=== PATIENT | male | born 1940 | race Caucasian/White ===

== ENCOUNTER 2020-02-21 13:30 | Inpatient (IN) ==
[2020-02-21 14:30] LABS: Basophils % 0.5 %; Eosinophils # 0.1 K/mcL (0.0-0.6); Eosinophils % 1.3 %; Hematocrit 46.3 % (37.5-50.1); Immature Granulocytes % 0.3 % (0-4); Lymphocytes % 11.9 %; Mean Corpuscular HGB Conc 32.4 g/dL (31.6-35.5); Mean Corpuscular Hemoglobin 29.5 pg (28.0-33.3); Mean Platelet Volume 11.5 fL (9.4-12.4); Monocytes # 0.7 K/mcL (0.0-1.3); Monocytes % 8.4 %; Neutrophils # 6.7 K/mcL (1.6-8.9); Platelet Count 199 K/mcL (140-400); Red Blood Count 5.09 M/mcL (4.19-5.50); Red Cell Distribution Width 15.8 % (11.5-14.5); Segmented Neutrophils % 77.6 %; White Blood Count 8.6 K/mcL (4.3-11.1)
[2020-02-21] MEDS ORDERED: cefTRIAXone 1,000 MG in Water for inj. (sterile) 10 ML IVP ONE (14:41)
[2020-02-21] MEDS ORDERED: Azithromycin 500 MG in 0.9 % Sodium Chloride 250 ML IVPB ONE (14:42)
[2020-02-21] MEDS ORDERED: Ipratropium/Albuterol Neb 3 ML IH ONE (14:43)
[2020-02-21] MEDS ORDERED: methylPREDNISolone 125 MG in 0.9 % Sodium Chloride 100 ML IVPB ONE (14:45)
[2020-02-21] MEDS ORDERED: methylPREDNISolone 125 MG/2 ML VIAL IVP ONE (14:50)
[2020-02-21 14:51] LABS: INR 1.1; Prothrombin Time 12.8 Seconds (9.4-12.1)
[2020-02-21 15:09] LABS: VBG HCO3 33 mEq/L (21-27); VBG Ionized Calcium 1.18 mmol/L (1.15-1.35); VBG PCO2 63 mmHg (41-51); VBG PH 7.33 pH Units (7.32-7.42); VBG PO2 117 mmHg (25-50)
[2020-02-21 15:35] LABS: Alanine Aminotransferase 13 Units/L (7-52); Alkaline Phosphatase 64 Units/L (34-104); Aspartate Amino Transferase 17 Units/L (13-39); BUN/Creatinine Ratio 19 (6-26); Bilirubin,Total 0.7 mg/dL (0.3-1.0); Blood Urea Nitrogen 16 mg/dL (8-23); C-Reactive Protein 51 mg/L (Less than 10); Calcium 8.7 mg/dL (8.6-10.3); Carbon Dioxide 30 mEq/L (23-29); Chloride 104 mEq/L (98-107); Glucose 107 mg/dL (70-105); Lactate Dehydrogenase 151 Units/L (140-271); Osmolality,Calculated 292 (280-300); Phosphorous 3.2 mg/dL (2.7-4.5); Potassium 3.6 mEq/L (3.5-5.1); Sodium 140 mEq/L (136-145); Troponin I < 0.03 ng/mL (< 0.04); eGFR For African Americans > 60 (> 60); eGFR For Non-African Americans > 60 (> 60)
[2020-02-21 15:53] LABS: Ferritin 105 ng/mL (20-250)
[2020-02-21 16:58] LABS: Bilirubin,Urine Negative (Negative); Blood,Urine Negative (Negative); Clarity,Urine Clear (Clear); Color,Urine Yellow (Yellow); Glucose,Urine (UA) Normal (Normal); Ketones,Urine Negative (Negative); Leukocyte Esterase,Urine Negative (Negative); Nitrite,Urine Negative (Negative); PH,Urine 6.5 pH Units (5.0-8.0); Protein,Urine Negative (Neg-Trace); Specific Gravity,Urine 1.029 (1.010-1.025); Urobilinogen,Urine Normal (Normal)
[2020-02-21] MEDS ORDERED: Naloxone 0.4 MG/ML INJ IVP PRN (17:39)
[2020-02-21] MEDS: Ipratropium 1 PUFF INHALER IH SCH ×2 (18:13→22:27)
[2020-02-21] MEDS: MethylPREDNISolone 40 MG/ML VIAL IVP SCH (22:58)
[2020-02-22] MEDS: Ipratropium 1 PUFF INHALER IH SCH ×4 (04:01→22:55)
[2020-02-22 05:57] LABS: BUN/Creatinine Ratio 24 (6-26); Blood Urea Nitrogen 21 mg/dL (8-23); Calcium 9.1 mg/dL (8.6-10.3); Carbon Dioxide 31 mEq/L (23-29); Chloride 105 mEq/L (98-107); Glucose 144 mg/dL (70-105); Osmolality,Calculated 298 (280-300); Sodium 141 mEq/L (136-145); eGFR For African Americans > 60 (> 60); eGFR For Non-African Americans > 60 (> 60)
[2020-02-22] MEDS ORDERED: *HR* Enoxaparin 30 MG/0.3 ML SYRINGE SQ SCH (06:00)
[2020-02-22] MEDS: cefTRIAXone 1,000 MG in Water for inj. (sterile) 10 ML IVP SCH (08:40)
[2020-02-22] MEDS: MethylPREDNISolone 40 MG/ML VIAL IVP SCH (08:40)
[2020-02-22] MEDS: Aspirin Enteric Coated 81 MG Tablet PO SCH (08:40)
[2020-02-22] MEDS ORDERED: Azithromycin 500 MG in D5% in Water 250 ML IVPB SCH (15:00)
[2020-02-23] MEDS: Ipratropium 1 PUFF INHALER IH SCH ×3 (04:03→16:32)
[2020-02-23 06:11] LABS: Basophils % 0.1 %; Hematocrit 42.6 % (37.5-50.1); Immature Granulocytes % 0.5 % (0-4); Lymphocytes % 8.1 %; Mean Corpuscular HGB Conc 31.2 g/dL (31.6-35.5); Mean Corpuscular Hemoglobin 28.2 pg (28.0-33.3); Mean Corpuscular Volume 90.4 fL (83.0-100.0); Mean Platelet Volume 11.2 fL (9.4-12.4); Monocytes # 0.9 K/mcL (0.0-1.3); Monocytes % 7.3 %; Platelet Count 200 K/mcL (140-400); Red Blood Count 4.71 M/mcL (4.19-5.50); Red Cell Distribution Width 15.7 % (11.5-14.5); White Blood Count 11.9 K/mcL (4.3-11.1)
[2020-02-23 06:12] LABS: Hemoglobin 13.3 g/dL (12.9-16.9)
[2020-02-23 06:15] LABS: VBG HCO3 28 mEq/L (21-27); VBG PCO2 35 mmHg (41-51); VBG PH 7.51 pH Units (7.32-7.42); VBG PO2 166 mmHg (25-50)
[2020-02-23 06:32] LABS: BUN/Creatinine Ratio 37 (6-26); Blood Urea Nitrogen 34 mg/dL (8-23); Calcium 8.7 mg/dL (8.6-10.3); Carbon Dioxide 29 mEq/L (23-29); Chloride 105 mEq/L (98-107); Glucose 103 mg/dL (70-105); Magnesium 2.2 mg/dL (1.6-2.6); Osmolality,Calculated 296 (280-300); Potassium 4.2 mEq/L (3.5-5.1); Sodium 139 mEq/L (136-145); eGFR For African Americans > 60 (> 60); eGFR For Non-African Americans > 60 (> 60)
[2020-02-23] MEDS: *HR* Enoxaparin 40 MG/0.4 ML SYRINGE SQ SCH (06:35)
[2020-02-23] MEDS: cefTRIAXone 1,000 MG in Water for inj. (sterile) 10 ML IVP SCH (08:04)
[2020-02-23] MEDS: Cyanocobalamin (B-12) 1,000 MCG TABLET PO SCH (08:05)
[2020-02-23] MEDS: Multivit/Ca/Min/Fe/FA 1 TAB TABLET PO SCH (08:05)
[2020-02-23] MEDS: Aspirin Enteric Coated 81 MG Tablet PO SCH (08:05)
[2020-02-23] MEDS: predniSONE 20 MG TABLET PO SCH (09:24)
[2020-02-23] MEDS ORDERED: Azithromycin 500 MG in 0.9 % Sodium Chloride 250 ML IVPB SCH (15:45)
[2020-02-23] MEDS: Ipratropium/Albuterol Neb 3 ML IH SCH (21:05)
[2020-02-23] MEDS: Tiotropium 18 MCG inhalation IH SCH (21:05)
[2020-02-24 00:50] LABS: Basophils % 0.2 %; Eosinophils % 0.4 %; Hemoglobin 13.5 g/dL (12.9-16.9); Immature Granulocytes % 0.3 % (0-4); Lymphocytes # 1.2 K/mcL (0.6-4.6); Lymphocytes % 11.7 %; Mean Corpuscular HGB Conc 30.7 g/dL (31.6-35.5); Mean Corpuscular Volume 91.1 fL (83.0-100.0); Mean Platelet Volume 10.6 fL (9.4-12.4); Monocytes # 0.8 K/mcL (0.0-1.3); Monocytes % 7.9 %; Neutrophils # 7.8 K/mcL (1.6-8.9); Platelet Count 181 K/mcL (140-400); Red Blood Count 4.83 M/mcL (4.19-5.50); Red Cell Distribution Width 15.5 % (11.5-14.5); Segmented Neutrophils % 79.5 %; White Blood Count 9.8 K/mcL (4.3-11.1)
[2020-02-24 00:53] LABS: VBG HCO3 32 mEq/L (21-27); VBG PCO2 57 mmHg (41-51); VBG PH 7.36 pH Units (7.32-7.42); VBG PO2 49 mmHg (25-50)
[2020-02-24 01:06] LABS: BUN/Creatinine Ratio 38 (6-26); Blood Urea Nitrogen 35 mg/dL (8-23); Calcium 8.4 mg/dL (8.6-10.3); Carbon Dioxide 30 mEq/L (23-29); Chloride 101 mEq/L (98-107); Glucose 97 mg/dL (70-105); Magnesium 1.9 mg/dL (1.6-2.6); Osmolality,Calculated 294 (280-300); Sodium 138 mEq/L (136-145); eGFR For African Americans > 60 (> 60); eGFR For Non-African Americans > 60 (> 60)
[2020-02-24] MEDS: Ipratropium/Albuterol Neb 3 ML IH SCH ×4 (03:14→22:23)
[2020-02-24] MEDS: *HR* Enoxaparin 40 MG/0.4 ML SYRINGE SQ SCH (05:57)
[2020-02-24] MEDS: Tiotropium 18 MCG inhalation IH SCH (08:05)
[2020-02-24] MEDS: Aspirin Enteric Coated 81 MG Tablet PO SCH (08:07)
[2020-02-24] MEDS: predniSONE 20 MG TABLET PO SCH (08:07)
[2020-02-24] MEDS: Multivit/Ca/Min/Fe/FA 1 TAB TABLET PO SCH (08:07)
[2020-02-24] MEDS: cefTRIAXone 1,000 MG in Water for inj. (sterile) 10 ML IVP SCH (08:07)
[2020-02-24] MEDS: Cyanocobalamin (B-12) 1,000 MCG TABLET PO SCH (08:07)
[2020-02-24] MEDS: Nicotine 21 MG PATCH.TD24 TD SCH (15:15)
[2020-02-24] MEDS: amLODIPine 5 MG TABLET PO SCH (20:29)
[2020-02-25 02:01] LABS: Basophils % 0.1 %; Hematocrit 40.1 % (37.5-50.1); Hemoglobin 12.7 g/dL (12.9-16.9); Immature Granulocytes % 0.4 % (0-4); Lymphocytes # 0.9 K/mcL (0.6-4.6); Lymphocytes % 12.2 %; Mean Corpuscular HGB Conc 31.7 g/dL (31.6-35.5); Mean Corpuscular Hemoglobin 28.3 pg (28.0-33.3); Mean Corpuscular Volume 89.5 fL (83.0-100.0); Mean Platelet Volume 11.6 fL (9.4-12.4); Monocytes # 0.7 K/mcL (0.0-1.3); Monocytes % 8.5 %; Platelet Count 168 K/mcL (140-400); Red Blood Count 4.48 M/mcL (4.19-5.50); Red Cell Distribution Width 15.3 % (11.5-14.5); Segmented Neutrophils % 78.8 %; White Blood Count 7.6 K/mcL (4.3-11.1)
[2020-02-25 02:23] LABS: BUN/Creatinine Ratio 33 (6-26); Blood Urea Nitrogen 27 mg/dL (8-23); Calcium 8.8 mg/dL (8.6-10.3); Carbon Dioxide 29 mEq/L (23-29); Chloride 101 mEq/L (98-107); Glucose 112 mg/dL (70-105); Magnesium 2.1 mg/dL (1.6-2.6); Osmolality,Calculated 288 (280-300); Sodium 136 mEq/L (136-145); eGFR For African Americans > 60 (> 60); eGFR For Non-African Americans > 60 (> 60)
[2020-02-25] MEDS: Ipratropium/Albuterol Neb 3 ML IH SCH ×4 (03:13→21:22)
[2020-02-25] MEDS: *HR* Enoxaparin 40 MG/0.4 ML SYRINGE SQ SCH (06:22)
[2020-02-25] MEDS: Cyanocobalamin (B-12) 1,000 MCG TABLET PO SCH (08:27)
[2020-02-25] MEDS: Aspirin Enteric Coated 81 MG Tablet PO SCH (08:27)
[2020-02-25] MEDS: cefTRIAXone 1,000 MG in Water for inj. (sterile) 10 ML IVP SCH (08:27)
[2020-02-25] MEDS: predniSONE 20 MG TABLET PO SCH (08:27)
[2020-02-25] MEDS: amLODIPine 5 MG TABLET PO SCH (08:27)
[2020-02-25] MEDS: Multivit/Ca/Min/Fe/FA 1 TAB TABLET PO SCH (08:27)
[2020-02-25] MEDS: Nicotine 21 MG PATCH.TD24 TD SCH (08:28)
[2020-02-25] MEDS: Tiotropium 18 MCG inhalation IH SCH (10:57)
[2020-02-25] MEDS ORDERED: *HR* HYDROcodone/Acet 5/325 mg TABLET PO ONE (20:29)
[2020-02-26] MEDS: Ipratropium/Albuterol Neb 3 ML IH SCH ×4 (03:20→21:23)
[2020-02-26 04:43] LABS: Basophils % 0.2 %; Eosinophils # 0.3 K/mcL (0.0-0.6); Eosinophils % 3.7 %; Hematocrit 42.3 % (37.5-50.1); Hemoglobin 13.6 g/dL (12.9-16.9); Immature Granulocytes % 0.2 % (0-4); Lymphocytes # 1.3 K/mcL (0.6-4.6); Lymphocytes % 15.6 %; Mean Corpuscular HGB Conc 32.2 g/dL (31.6-35.5); Mean Corpuscular Hemoglobin 28.6 pg (28.0-33.3); Mean Corpuscular Volume 88.9 fL (83.0-100.0); Mean Platelet Volume 11.1 fL (9.4-12.4); Monocytes # 0.7 K/mcL (0.0-1.3); Monocytes % 8.1 %; Neutrophils # 5.9 K/mcL (1.6-8.9); Platelet Count 190 K/mcL (140-400); Red Blood Count 4.76 M/mcL (4.19-5.50); Red Cell Distribution Width 15.5 % (11.5-14.5); Segmented Neutrophils % 72.2 %; White Blood Count 8.2 K/mcL (4.3-11.1)
[2020-02-26 05:00] LABS: BUN/Creatinine Ratio 23 (6-26); Blood Urea Nitrogen 21 mg/dL (8-23); Calcium 8.8 mg/dL (8.6-10.3); Carbon Dioxide 32 mEq/L (23-29); Chloride 101 mEq/L (98-107); Glucose 104 mg/dL (70-105); Magnesium 1.9 mg/dL (1.6-2.6); Osmolality,Calculated 287 (280-300); Potassium 4.3 mEq/L (3.5-5.1); Sodium 137 mEq/L (136-145); eGFR For African Americans > 60 (> 60); eGFR For Non-African Americans > 60 (> 60)
[2020-02-26] MEDS: *HR* Enoxaparin 40 MG/0.4 ML SYRINGE SQ SCH (06:03)
[2020-02-26] MEDS: Cyanocobalamin (B-12) 1,000 MCG TABLET PO SCH (08:09)
[2020-02-26] MEDS: amLODIPine 5 MG TABLET PO SCH (08:09)
[2020-02-26] MEDS: Multivit/Ca/Min/Fe/FA 1 TAB TABLET PO SCH (08:09)
[2020-02-26] MEDS: predniSONE 20 MG TABLET PO SCH (08:09)
[2020-02-26] MEDS: Aspirin Enteric Coated 81 MG Tablet PO SCH (08:09)
[2020-02-26] MEDS: cefTRIAXone 1,000 MG in Water for inj. (sterile) 10 ML IVP SCH (08:09)
[2020-02-26] MEDS: Nicotine 21 MG PATCH.TD24 TD SCH (08:10)
[2020-02-26] MEDS: Tiotropium 18 MCG inhalation IH SCH (10:22)
[2020-02-26] MEDS: Doxycycline 100 MG CAPSULE PO SCH (20:00)
[2020-02-27] MEDS: Ipratropium/Albuterol Neb 3 ML IH SCH ×3 (03:46→16:09)
[2020-02-27] MEDS: *HR* Enoxaparin 40 MG/0.4 ML SYRINGE SQ SCH (05:53)
[2020-02-27 05:57] LABS: Basophils % 0.3 %; Eosinophils # 0.1 K/mcL (0.0-0.6); Eosinophils % 2.1 %; Hematocrit 41.7 % (37.5-50.1); Hemoglobin 13.1 g/dL (12.9-16.9); Immature Granulocytes % 0.2 % (0-4); Lymphocytes # 1.1 K/mcL (0.6-4.6); Lymphocytes % 17.9 %; Mean Corpuscular HGB Conc 31.4 g/dL (31.6-35.5); Mean Corpuscular Hemoglobin 27.7 pg (28.0-33.3); Mean Corpuscular Volume 88.2 fL (83.0-100.0); Mean Platelet Volume 10.9 fL (9.4-12.4); Monocytes # 0.6 K/mcL (0.0-1.3); Monocytes % 10.1 %; Neutrophils # 4.3 K/mcL (1.6-8.9); Platelet Count 187 K/mcL (140-400); Red Blood Count 4.73 M/mcL (4.19-5.50); Red Cell Distribution Width 15.3 % (11.5-14.5); Segmented Neutrophils % 69.4 %; White Blood Count 6.1 K/mcL (4.3-11.1)
[2020-02-27 06:13] LABS: BUN/Creatinine Ratio 21 (6-26); Blood Urea Nitrogen 20 mg/dL (8-23); Calcium 9.2 mg/dL (8.6-10.3); Carbon Dioxide 31 mEq/L (23-29); Chloride 107 mEq/L (98-107); Glucose 101 mg/dL (70-105); Magnesium 2.1 mg/dL (1.6-2.6); Osmolality,Calculated 279 (280-300); Potassium 4.6 mEq/L (3.5-5.1); Sodium 133 mEq/L (136-145); eGFR For African Americans > 60 (> 60); eGFR For Non-African Americans > 60 (> 60)
[2020-02-27] MEDS: Doxycycline 100 MG CAPSULE PO SCH (09:49)
[2020-02-27] MEDS: Multivit/Ca/Min/Fe/FA 1 TAB TABLET PO SCH (09:49)
[2020-02-27] MEDS: Aspirin Enteric Coated 81 MG Tablet PO SCH (09:49)
[2020-02-27] MEDS: amLODIPine 5 MG TABLET PO SCH (09:49)
[2020-02-27] MEDS: Nicotine 21 MG PATCH.TD24 TD SCH (09:49)
[2020-02-27] MEDS: Cyanocobalamin (B-12) 1,000 MCG TABLET PO SCH (09:49)
[2020-02-27] MEDS: predniSONE 20 MG TABLET PO SCH (09:49)
[2020-02-27] MEDS: Tiotropium 18 MCG inhalation IH SCH (10:21)
[2020-02-27 16:55] VITALS: BP 137/56
== END 2020-02-27 18:52 | disposition home health service (06) | DRG 193 ==
LOC: EMEROOARM 13:30 → 2NENU 13:30 → SUATTDRO 17:46 → 2NENU 18:21 → 3NENU 02-22 20:32 → 2ANU 02-26 17:57
PROVIDERS: ADMIT Internal Medicine; ATTEND Pharmacist

== ENCOUNTER 2020-04-16 14:26 | Observation (INO) ==
[2020-04-16 16:50] LABS: Hemoglobin 11.3 g/dL (12.9-16.9); Immature Granulocytes % 0.2 % (0-4)
[2020-04-16 16:51] LABS: Basophils % 0.5 %; Eosinophils # 0.3 K/mcL (0.0-0.6); Eosinophils % 4.6 %; Hematocrit 36.3 % (37.5-50.1); Immature Platelets 7.1 % (1.1-6.1); Lymphocytes # 1.1 K/mcL (0.6-4.6); Lymphocytes % 18.7 %; Mean Corpuscular HGB Conc 31.1 g/dL (31.6-35.5); Mean Corpuscular Hemoglobin 28.3 pg (28.0-33.3); Mean Platelet Volume 11.5 fL (9.4-12.4); Monocytes # 0.6 K/mcL (0.0-1.3); Monocytes % 10.3 %; Platelet Count 131 K/mcL (140-400); Red Blood Count 3.99 M/mcL (4.19-5.50); Red Cell Distribution Width 16.4 % (11.5-14.5); Segmented Neutrophils % 65.7 %; White Blood Count 6.1 K/mcL (4.3-11.1)
[2020-04-16 17:14] LABS: BUN/Creatinine Ratio 26 (6-26); Blood Urea Nitrogen 22 mg/dL (8-23); Calcium 8.4 mg/dL (8.6-10.3); Carbon Dioxide 32 mEq/L (23-29); Chloride 105 mEq/L (98-107); Glucose 87 mg/dL (70-105); Osmolality,Calculated 293 (280-300); Sodium 140 mEq/L (136-145); eGFR For African Americans > 60 (> 60); eGFR For Non-African Americans > 60 (> 60)
[2020-04-16] MEDS ORDERED: Vancomycin 1,500 MG/265 ML IV.SOLN IVPB ONE (20:24)
[2020-04-16] MEDS ORDERED: Naloxone 0.4 MG/ML INJ IVP PRN (21:05)
[2020-04-16] MEDS ORDERED: Albuterol 2.5 MG/3 ML NEBULIZER IH PRN (21:07)
[2020-04-16] MEDS ORDERED: OXYGEN IH SCH (21:15)
[2020-04-17 02:36] LABS: BUN/Creatinine Ratio 23 (6-26); Blood Urea Nitrogen 19 mg/dL (8-23); Calcium 8.6 mg/dL (8.6-10.3); Carbon Dioxide 30 mEq/L (23-29); Chloride 105 mEq/L (98-107); Glucose 93 mg/dL (70-105); Osmolality,Calculated 290 (280-300); Potassium 4.2 mEq/L (3.5-5.1); Sodium 139 mEq/L (136-145); eGFR For African Americans > 60 (> 60); eGFR For Non-African Americans > 60 (> 60)
[2020-04-17 02:38] LABS: Basophils # 0.1 K/mcL (0.0-0.2); Basophils % 0.6 %; Eosinophils # 0.4 K/mcL (0.0-0.6); Eosinophils % 5.6 %; Hematocrit 40.1 % (37.5-50.1); Hemoglobin 12.2 g/dL (12.9-16.9); Immature Granulocytes % 0.3 % (0-4); Immature Platelets 8.7 % (1.1-6.1); Lymphocytes # 1.7 K/mcL (0.6-4.6); Lymphocytes % 22.3 %; Mean Corpuscular HGB Conc 30.4 g/dL (31.6-35.5); Mean Corpuscular Hemoglobin 27.9 pg (28.0-33.3); Mean Corpuscular Volume 91.8 fL (83.0-100.0); Monocytes # 0.8 K/mcL (0.0-1.3); Monocytes % 10.8 %; Neutrophils # 4.7 K/mcL (1.6-8.9); Platelet Count 129 K/mcL (140-400); Red Blood Count 4.37 M/mcL (4.19-5.50); Red Cell Distribution Width 16.6 % (11.5-14.5); Segmented Neutrophils % 60.4 %; White Blood Count 7.7 K/mcL (4.3-11.1)
[2020-04-17] MEDS ORDERED: *HR* Heparin 5,000 UNIT/ML VIAL SQ SCH (06:00)
[2020-04-17] MEDS ORDERED: Piperacillin/Tazobactam 3.375 GM in 0.9 % Sodium Chloride Mini Bag 100 ML IVPB SCH (08:00)
[2020-04-17] MEDS ORDERED: amLODIPine 5 MG TABLET PO SCH (09:00)
[2020-04-17] MEDS ORDERED: Aspirin Enteric Coated 81 MG Tablet PO SCH (09:00)
[2020-04-17] MEDS ORDERED: Multivit/Ca/Min/Fe/FA 1 TAB TABLET PO SCH (09:00)
[2020-04-17] MEDS ORDERED: Tiotropium 18 MCG inhalation IH SCH (10:00)
[2020-04-17 11:19] VITALS: BP 115/46
== END 2020-04-17 13:39 | disposition home or self-care (01) ==
LOC: EMEROOARM 14:26 → 3BNU 14:26 → SUATTDRO 20:40 → 3BNU 21:27 → UNDODISOB 04-17 12:36
PROVIDERS: ADMIT Family Medicine; ATTEND Internal Medicine

== ENCOUNTER 2020-07-05 12:57 | Inpatient (IN) ==
[2020-07-05] MEDS ORDERED: 0.9 % Sodium Chloride 1,000 ML IVC ONE (13:10)
[2020-07-05 14:03] LABS: Basophils % 0.5 %; Eosinophils # 0.3 K/mcL (0.0-0.6); Eosinophils % 4.4 %; Hematocrit 36.6 % (37.5-50.1); Hemoglobin 11.4 g/dL (12.9-16.9); Immature Granulocytes % 0.4 % (0-4); Lymphocytes # 1.2 K/mcL (0.6-4.6); Lymphocytes % 16.5 %; Mean Corpuscular HGB Conc 31.1 g/dL (31.6-35.5); Mean Corpuscular Hemoglobin 29.3 pg (28.0-33.3); Mean Corpuscular Volume 94.1 fL (83.0-100.0); Mean Platelet Volume 11.7 fL (9.4-12.4); Monocytes # 0.5 K/mcL (0.0-1.3); Monocytes % 7.2 %; Neutrophils # 5.3 K/mcL (1.6-8.9); Platelet Count 156 K/mcL (140-400); Red Blood Count 3.89 M/mcL (4.19-5.50); Red Cell Distribution Width 13.3 % (11.5-14.5); White Blood Count 7.5 K/mcL (4.3-11.1)
[2020-07-05 14:03] LABS: Bilirubin,Urine Negative (Negative); Blood,Urine Trace (Negative); Clarity,Urine Clear (Clear); Color,Urine Light-Yellow (Yellow); Glucose,Urine (UA) Normal (Normal); Ketones,Urine Negative (Negative); Leukocyte Esterase,Urine Negative (Negative); Nitrite,Urine Negative (Negative); PH,Urine 7.5 pH Units (5.0-8.0); Protein,Urine Negative (Neg-Trace); RBC,Urine 0-3 per hpf (0-3); Specific Gravity,Urine 1.013 (1.010-1.025); Urobilinogen,Urine Normal (Normal); WBC,Urine 0-3 per hpf (0-3)
[2020-07-05 14:18] LABS: Alanine Aminotransferase 5 Units/L (7-52); Albumin 3.4 g/dL (3.5-5.7); Albumin/Globulin Ratio 1.3 (1.1-2.2); Alkaline Phosphatase 83 Units/L (34-104); Aspartate Amino Transferase 11 Units/L (13-39); BUN/Creatinine Ratio 20 (6-26); Bilirubin,Total 0.4 mg/dL (0.3-1.0); Blood Urea Nitrogen 18 mg/dL (8-23); Calcium 8.8 mg/dL (8.6-10.3); Carbon Dioxide 32 mEq/L (23-29); Chloride 103 mEq/L (98-107); Globulin 2.7 g/dL (2.4-3.5); Glucose 93 mg/dL (70-105); Osmolality,Calculated 288 (280-300); Sodium 138 mEq/L (136-145); Total Protein 6.1 g/dL (6.4-8.9); Troponin I < 0.03 ng/mL (< 0.04); eGFR For African Americans > 60 (> 60); eGFR For Non-African Americans > 60 (> 60)
[2020-07-05] MEDS ORDERED: Naloxone 0.4 MG/ML INJ IVP PRN (16:23)
[2020-07-05] MEDS ORDERED: Acetaminophen 325 MG TABLET PO PRN (16:29)
[2020-07-05 17:08] LABS: C-Reactive Protein 11 mg/L (Less than 10); Magnesium 1.8 mg/dL (1.6-2.6); Phosphorous 3.1 mg/dL (2.7-4.5)
[2020-07-05] MEDS ORDERED: Albuterol 2.5 MG/3 ML NEBULIZER IH PRN (18:00)
[2020-07-05] MEDS ORDERED: Perflutren Lipid Microsphere 1.3 ML in 0.9 % Sodium Chloride 8.7 ML IVP PRN (19:02)
[2020-07-05 20:20] LABS: Prothrombin Time 11.6 Seconds (9.4-12.1)
[2020-07-06] MEDS: amLODIPine 5 MG TABLET PO SCH (08:04)
[2020-07-06] MEDS: Aspirin Enteric Coated 81 MG Tablet PO SCH (08:04)
[2020-07-06] MEDS: Tiotropium 18 MCG inhalation IH SCH (10:45)
[2020-07-06 10:47] LABS: Hematocrit 37.4 % (37.5-50.1); Hemoglobin 11.8 g/dL (12.9-16.9); Mean Corpuscular HGB Conc 31.6 g/dL (31.6-35.5); Mean Corpuscular Hemoglobin 29.6 pg (28.0-33.3); Mean Corpuscular Volume 93.7 fL (83.0-100.0); Mean Platelet Volume 11.7 fL (9.4-12.4); Platelet Count 142 K/mcL (140-400); Red Blood Count 3.99 M/mcL (4.19-5.50); Red Cell Distribution Width 13.1 % (11.5-14.5); White Blood Count 6.9 K/mcL (4.3-11.1)
[2020-07-06 11:06] LABS: BUN/Creatinine Ratio 19 (6-26); Blood Urea Nitrogen 16 mg/dL (8-23); Calcium 8.9 mg/dL (8.6-10.3); Carbon Dioxide 28 mEq/L (23-29); Chloride 104 mEq/L (98-107); Glucose 102 mg/dL (70-105); Osmolality,Calculated 287 (280-300); Potassium 3.8 mEq/L (3.5-5.1); Sodium 138 mEq/L (136-145); eGFR For African Americans > 60 (> 60); eGFR For Non-African Americans > 60 (> 60)
[2020-07-06] MEDS ORDERED: Leptospermum Honey GEL 1 APPL/5 ML MLS TP SCH (13:45)
[2020-07-06] MEDS: Leptospermum Honey Gel 44 ML TUBE TP SCH (17:36)
[2020-07-06] MEDS: *HR* Heparin 5,000 UNIT/ML VIAL SQ SCH (21:21)
[2020-07-07 02:38] LABS: Hematocrit 33.9 % (37.5-50.1); Hemoglobin 10.9 g/dL (12.9-16.9); Mean Corpuscular HGB Conc 32.2 g/dL (31.6-35.5); Mean Corpuscular Hemoglobin 30.3 pg (28.0-33.3); Mean Corpuscular Volume 94.2 fL (83.0-100.0); Mean Platelet Volume 11.6 fL (9.4-12.4); Platelet Count 148 K/mcL (140-400); Red Cell Distribution Width 13.1 % (11.5-14.5); White Blood Count 6.8 K/mcL (4.3-11.1)
[2020-07-07 02:57] LABS: BUN/Creatinine Ratio 20 (6-26); Blood Urea Nitrogen 18 mg/dL (8-23); Calcium 8.2 mg/dL (8.6-10.3); Carbon Dioxide 29 mEq/L (23-29); Chloride 104 mEq/L (98-107); Glucose 97 mg/dL (70-105); Osmolality,Calculated 288 (280-300); Potassium 3.9 mEq/L (3.5-5.1); Sodium 138 mEq/L (136-145); eGFR For African Americans > 60 (> 60); eGFR For Non-African Americans > 60 (> 60)
[2020-07-07] MEDS: *HR* Heparin 5,000 UNIT/ML VIAL SQ SCH (05:23)
[2020-07-07] MEDS: Aspirin Enteric Coated 81 MG Tablet PO SCH (10:28)
[2020-07-07] MEDS: amLODIPine 5 MG TABLET PO SCH (10:28)
[2020-07-07] MEDS: Leptospermum Honey Gel 44 ML TUBE TP SCH (10:29)
[2020-07-07] MEDS: Tiotropium 18 MCG inhalation IH SCH (10:32)
[2020-07-07 12:02] LABS: Cholesterol 91 mg/dL (< 200); HDL Cholesterol 30 mg/dL (40-59); LDL Cholesterol,Calculated 51 mg/dL (< 100); Triglycerides 51 mg/dL (< 150)
[2020-07-07 12:06] LABS: Estimated Average Glucose 105 mg/dl
[2020-07-08] MEDS: *HR* Enoxaparin 40 MG/0.4 ML SYRINGE SQ SCH (04:49)
[2020-07-08] MEDS: Tiotropium 18 MCG inhalation IH SCH (07:55)
[2020-07-08] MEDS: Aspirin Enteric Coated 81 MG Tablet PO SCH (09:00)
[2020-07-08] MEDS: Leptospermum Honey Gel 44 ML TUBE TP SCH (09:00)
[2020-07-08] MEDS: amLODIPine 5 MG TABLET PO SCH (09:00)
[2020-07-09 05:11] LABS: Hemoglobin 11.5 g/dL (12.9-16.9); Mean Corpuscular HGB Conc 31.9 g/dL (31.6-35.5); Mean Corpuscular Hemoglobin 29.3 pg (28.0-33.3); Mean Corpuscular Volume 91.6 fL (83.0-100.0); Mean Platelet Volume 11.2 fL (9.4-12.4); Platelet Count 155 K/mcL (140-400); Red Blood Count 3.93 M/mcL (4.19-5.50)
[2020-07-09] MEDS: *HR* Enoxaparin 40 MG/0.4 ML SYRINGE SQ SCH (05:20)
[2020-07-09 05:34] LABS: BUN/Creatinine Ratio 21 (6-26); Blood Urea Nitrogen 21 mg/dL (8-23); Calcium 8.4 mg/dL (8.6-10.3); Carbon Dioxide 30 mEq/L (23-29); Chloride 104 mEq/L (98-107); Glucose 102 mg/dL (70-105); Osmolality,Calculated 291 (280-300); Potassium 4.1 mEq/L (3.5-5.1); Sodium 139 mEq/L (136-145); eGFR For African Americans > 60 (> 60); eGFR For Non-African Americans > 60 (> 60)
[2020-07-09] MEDS: Tiotropium 18 MCG inhalation IH SCH (07:48)
[2020-07-09] MEDS: amLODIPine 5 MG TABLET PO SCH (10:12)
[2020-07-09] MEDS: Aspirin Enteric Coated 81 MG Tablet PO SCH (10:12)
[2020-07-09] MEDS: Leptospermum Honey Gel 44 ML TUBE TP SCH (10:24)
[2020-07-09 15:27] VITALS: BP 143/70
== END 2020-07-09 17:59 | DRG 65 ==
LOC: EMEROOARM 12:57 → 3BNU 12:57 → SUATTDRO 18:03
PROVIDERS: ADMIT Internal Medicine; ATTEND Internal Medicine

== ENCOUNTER 2020-08-17 13:12 | Inpatient (IN) ==
[2020-08-17 13:41] LABS: Bacteria,Urine Many per hpf (None-Few); Bilirubin,Urine Negative (Negative); Blood,Urine Moderate (Negative); Clarity,Urine Turbid (Clear); Color,Urine Yellow (Yellow); Glucose,Urine (UA) Normal (Normal); Hyaline Casts,Urine Few per lpf (None Seen); Ketones,Urine Negative (Negative); Leukocyte Esterase,Urine Large (Negative); Mucus,Urine Few per lpf (None-Few); Nitrite,Urine Positive (Negative); PH,Urine 6.5 pH Units (5.0-8.0); Protein,Urine Trace mg/dL (Neg-Trace); Specific Gravity,Urine 1.016 (1.010-1.025); Squamous Epithelial Cell,Urine Few per hpf (None-Few); WBC,Urine TNTC per hpf (0-3)
[2020-08-17 13:48] LABS: Amphetamine Screen,Urine Negative ng/mL (Cutoff=1000); Barbiturate Screen,Urine Negative ng/mL (Cutoff=200); Benzodiazepines Screen,Urine Negative ng/mL (Cutoff=200); Cannabinoid Screen,Urine Negative ng/mL (Cutoff = 50); Cocaine Screen,Urine Negative ng/mL (Cutoff= 300); Opiate Screen,Urine Negative ng/mL (Cutoff=300); Phencyclidine Screen,Urine Negative ng/mL (Cutoff=25)
[2020-08-17 14:20] LABS: Basophils % 0.6 %; Eosinophils # 0.2 K/mcL (0.0-0.6); Eosinophils % 4.6 %; Hematocrit 40.8 % (37.5-50.1); Hemoglobin 13.3 g/dL (12.9-16.9); Immature Granulocytes % 0.2 % (0-4); Lymphocytes # 1.2 K/mcL (0.6-4.6); Lymphocytes % 22.4 %; Mean Corpuscular HGB Conc 32.6 g/dL (31.6-35.5); Mean Corpuscular Hemoglobin 29.4 pg (28.0-33.3); Mean Corpuscular Volume 90.3 fL (83.0-100.0); Mean Platelet Volume 11.9 fL (9.4-12.4); Monocytes # 0.7 K/mcL (0.0-1.3); Monocytes % 13.8 %; Neutrophils # 3.1 K/mcL (1.6-8.9); Platelet Count 126 K/mcL (140-400); Red Blood Count 4.52 M/mcL (4.19-5.50); Red Cell Distribution Width 13.7 % (11.5-14.5); Segmented Neutrophils % 58.4 %; White Blood Count 5.2 K/mcL (4.3-11.1)
[2020-08-17 14:44] LABS: Alanine Aminotransferase 22 Units/L (7-52); Albumin 3.6 g/dL (3.5-5.7); Albumin/Globulin Ratio 1.2 (1.1-2.2); Alkaline Phosphatase 86 Units/L (34-104); Aspartate Amino Transferase 28 Units/L (13-39); BUN/Creatinine Ratio 25 (6-26); Bilirubin,Direct 0.1 mg/dL (0.0-0.2); Bilirubin,Indirect 0.4 mg/dL (0.0-1.0); Bilirubin,Total 0.5 mg/dL (0.3-1.0); Blood Urea Nitrogen 21 mg/dL (8-23); Carbon Dioxide 28 mEq/L (23-29); Chloride 101 mEq/L (98-107); Ethanol < 10 mg/dL (Less than 10); Glucose 108 mg/dL (70-105); Osmolality,Calculated 284 (280-300); Potassium 3.8 mEq/L (3.5-5.1); Sodium 135 mEq/L (136-145); Total Protein 6.6 g/dL (6.4-8.9); Troponin I < 0.03 ng/mL (< 0.04); eGFR For African Americans > 60 (> 60); eGFR For Non-African Americans > 60 (> 60)
[2020-08-17] MEDS ORDERED: cefTRIAXone 1,000 MG in Water for inj. (sterile) 10 ML IVP ONE (15:01)
[2020-08-17] MEDS ORDERED: Naloxone 0.4 MG/ML INJ IVP PRN (15:29)
[2020-08-17] MEDS ORDERED: cefTRIAXone 2,000 MG in Water for inj. (sterile) 20 ML IVP SCH (18:00)
[2020-08-17 18:21] LABS: Adenovirus Not Detected (Not Detect); Bordetella Pertussis Not Detected (Not Detect); Chlamydophila pneumoniae Not Detected (Not Detect); Coronavirus 229E Not Detected (Not Detect); Coronavirus HKU1 Not Detected (Not Detect); Coronavirus NL63 Not Detected (Not Detect); Coronavirus OC43 Not Detected (Not Detect); Human Metapneumovirus Not Detected (Not Detect); Human Rhinovirus/Enterovirus Not Detected (Not Detect); Influenza A Subtype 2009 H1 Not Detected (Not Detect); Influenza B Not Detected (Not Detect); Mycoplasma pneumoniae Not Detected (Not Detect); Parainfluenza Virus 1 Not Detected (Not Detect); Parainfluenza Virus 2 Not Detected (Not Detect); Parainfluenza Virus 3 Not Detected (Not Detect); Parainfluenza Virus 4 Not Detected (Not Detect); Respiratory Syncytial Virus Not Detected (Not Detect); SARS-CoV-2 Not Detected (Not Detect)
[2020-08-17 18:35] LABS: ABG Base Excess 4 mEq/L (-2 to 3); ABG HCO3 31 mEq/L (21-27); ABG Oxygen Saturation 99 % (95-98); ABG PCO2 55 mmHg (35-45); ABG PH 7.36 pH Units (7.32-7.45); ABG PO2 134 mmHg (85-104); ABG TCO2 32 mEq/L (20-26)
[2020-08-17] MEDS: 0.9 % Sodium Chloride 1,000 ML IVC SCH (20:47)
[2020-08-17] MEDS: *HR* Heparin 5,000 UNIT/ML VIAL SQ SCH (20:48)
[2020-08-18] MEDS: *HR* Heparin 5,000 UNIT/ML VIAL SQ SCH ×2 (05:19→17:32)
[2020-08-18 06:02] LABS: Basophils # 0.1 K/mcL (0.0-0.2); Basophils % 0.9 %; Eosinophils # 0.4 K/mcL (0.0-0.6); Eosinophils % 6.5 %; Hematocrit 39.6 % (37.5-50.1); Hemoglobin 12.5 g/dL (12.9-16.9); Immature Granulocytes % 0.4 % (0-4); Lymphocytes # 1.4 K/mcL (0.6-4.6); Lymphocytes % 25.1 %; Mean Corpuscular HGB Conc 31.6 g/dL (31.6-35.5); Mean Corpuscular Hemoglobin 28.9 pg (28.0-33.3); Mean Corpuscular Volume 91.7 fL (83.0-100.0); Monocytes # 0.7 K/mcL (0.0-1.3); Monocytes % 13.7 %; Neutrophils # 2.9 K/mcL (1.6-8.9); Platelet Count 122 K/mcL (140-400); Red Blood Count 4.32 M/mcL (4.19-5.50); Red Cell Distribution Width 13.7 % (11.5-14.5); Segmented Neutrophils % 53.4 %; White Blood Count 5.4 K/mcL (4.3-11.1)
[2020-08-18 06:25] LABS: BUN/Creatinine Ratio 22 (6-26); Blood Urea Nitrogen 20 mg/dL (8-23); Calcium 8.8 mg/dL (8.6-10.3); Carbon Dioxide 29 mEq/L (23-29); Chloride 103 mEq/L (98-107); Glucose 95 mg/dL (70-105); Magnesium 2.1 mg/dL (1.6-2.6); Osmolality,Calculated 286 (280-300); Phosphorous 3.7 mg/dL (2.7-4.5); Potassium 3.9 mEq/L (3.5-5.1); Sodium 137 mEq/L (136-145); eGFR For African Americans > 60 (> 60); eGFR For Non-African Americans > 60 (> 60)
[2020-08-18] MEDS: cefTRIAXone 2,000 MG in Water for inj. (sterile) 20 ML IVP SCH (08:32)
[2020-08-18] MEDS: Aspirin Enteric Coated 81 MG Tablet PO SCH (08:33)
[2020-08-18] MEDS: amLODIPine 5 MG TABLET PO SCH (08:33)
[2020-08-18] MEDS: Ipratropium/Albuterol Neb 3 ML IH SCH ×2 (15:38→21:51)
[2020-08-18] MEDS: 0.9 % Sodium Chloride 1,000 ML IVC SCH (16:05)
[2020-08-19] MEDS: Ipratropium/Albuterol Neb 3 ML IH SCH ×4 (03:50→20:50)
[2020-08-19] MEDS: *HR* Heparin 5,000 UNIT/ML VIAL SQ SCH ×2 (05:16→18:06)
[2020-08-19] MEDS ORDERED: Furosemide 20 MG/2 ML VIAL IVP ONE (08:08)
[2020-08-19] MEDS: amLODIPine 5 MG TABLET PO SCH (09:57)
[2020-08-19] MEDS: Aspirin Enteric Coated 81 MG Tablet PO SCH (09:57)
[2020-08-19] MEDS: cefTRIAXone 2,000 MG in Water for inj. (sterile) 20 ML IVP SCH (09:58)
[2020-08-20] MEDS: Ipratropium/Albuterol Neb 3 ML IH SCH ×4 (03:55→22:32)
[2020-08-20] MEDS: *HR* Heparin 5,000 UNIT/ML VIAL SQ SCH ×2 (05:39→17:11)
[2020-08-20 06:11] LABS: Hematocrit 35.6 % (37.5-50.1); Hemoglobin 11.2 g/dL (12.9-16.9); Mean Corpuscular HGB Conc 31.5 g/dL (31.6-35.5); Mean Corpuscular Hemoglobin 28.2 pg (28.0-33.3); Mean Corpuscular Volume 89.7 fL (83.0-100.0); Red Blood Count 3.97 M/mcL (4.19-5.50); Red Cell Distribution Width 13.6 % (11.5-14.5); White Blood Count 5.7 K/mcL (4.3-11.1)
[2020-08-20 06:21] LABS: BUN/Creatinine Ratio 22 (6-26); Blood Urea Nitrogen 21 mg/dL (8-23); Calcium 8.6 mg/dL (8.6-10.3); Carbon Dioxide 32 mEq/L (23-29); Chloride 103 mEq/L (98-107); Glucose 107 mg/dL (70-105); Osmolality,Calculated 291 (280-300); Potassium 3.6 mEq/L (3.5-5.1); Sodium 139 mEq/L (136-145); eGFR For African Americans > 60 (> 60); eGFR For Non-African Americans > 60 (> 60)
[2020-08-20] MEDS: cefTRIAXone 2,000 MG in Water for inj. (sterile) 20 ML IVP SCH (11:04)
[2020-08-20] MEDS: Aspirin Enteric Coated 81 MG Tablet PO SCH (11:04)
[2020-08-20] MEDS: amLODIPine 5 MG TABLET PO SCH (11:08)
[2020-08-20] MEDS: Acetaminophen 325 MG TABLET PO PRN (11:29)
[2020-08-21] MEDS: Ipratropium/Albuterol Neb 3 ML IH SCH ×4 (03:49→22:26)
[2020-08-21 04:39] LABS: Basophils % 0.4 %; Eosinophils # 0.6 K/mcL (0.0-0.6); Eosinophils % 8.2 %; Hematocrit 35.6 % (37.5-50.1); Hemoglobin 11.4 g/dL (12.9-16.9); Immature Granulocytes % 0.3 % (0-4); Lymphocytes # 1.7 K/mcL (0.6-4.6); Mean Corpuscular Hemoglobin 28.7 pg (28.0-33.3); Mean Corpuscular Volume 89.7 fL (83.0-100.0); Mean Platelet Volume 11.2 fL (9.4-12.4); Monocytes # 0.6 K/mcL (0.0-1.3); Monocytes % 9.1 %; Neutrophils # 3.9 K/mcL (1.6-8.9); Platelet Count 157 K/mcL (140-400); Red Blood Count 3.97 M/mcL (4.19-5.50); Red Cell Distribution Width 13.7 % (11.5-14.5); White Blood Count 6.9 K/mcL (4.3-11.1)
[2020-08-21 04:55] LABS: BUN/Creatinine Ratio 20 (6-26); Blood Urea Nitrogen 21 mg/dL (8-23); Calcium 8.9 mg/dL (8.6-10.3); Carbon Dioxide 31 mEq/L (23-29); Chloride 102 mEq/L (98-107); Glucose 112 mg/dL (70-105); Osmolality,Calculated 290 (280-300); Potassium 3.7 mEq/L (3.5-5.1); Sodium 138 mEq/L (136-145); eGFR For African Americans > 60 (> 60); eGFR For Non-African Americans > 60 (> 60)
[2020-08-21] MEDS: *HR* Heparin 5,000 UNIT/ML VIAL SQ SCH ×2 (05:19→17:03)
[2020-08-21] MEDS: Aspirin Enteric Coated 81 MG Tablet PO SCH (09:32)
[2020-08-21] MEDS: amLODIPine 5 MG TABLET PO SCH (09:32)
[2020-08-21] MEDS: cefTRIAXone 2,000 MG in Water for inj. (sterile) 20 ML IVP SCH (09:33)
[2020-08-21] MEDS: Acetaminophen 325 MG TABLET PO PRN (09:34)
[2020-08-21] MEDS: Azithromycin 250 MG TABLET PO SCH (17:03)
[2020-08-22] MEDS: Ipratropium/Albuterol Neb 3 ML IH SCH ×3 (03:58→16:07)
[2020-08-22] MEDS: *HR* Heparin 5,000 UNIT/ML VIAL SQ SCH ×2 (05:57→16:36)
[2020-08-22 06:33] LABS: Basophils % 0.4 %; Eosinophils # 0.3 K/mcL (0.0-0.6); Eosinophils % 4.1 %; Hematocrit 37.5 % (37.5-50.1); Hemoglobin 12.2 g/dL (12.9-16.9); Immature Granulocytes % 0.4 % (0-4); Lymphocytes # 1.3 K/mcL (0.6-4.6); Lymphocytes % 16.5 %; Mean Corpuscular HGB Conc 32.5 g/dL (31.6-35.5); Mean Corpuscular Hemoglobin 29.3 pg (28.0-33.3); Mean Corpuscular Volume 90.1 fL (83.0-100.0); Mean Platelet Volume 11.5 fL (9.4-12.4); Monocytes # 0.6 K/mcL (0.0-1.3); Monocytes % 7.9 %; Neutrophils # 5.7 K/mcL (1.6-8.9); Platelet Count 190 K/mcL (140-400); Red Blood Count 4.16 M/mcL (4.19-5.50); Red Cell Distribution Width 13.9 % (11.5-14.5); Segmented Neutrophils % 70.7 %; White Blood Count 8.1 K/mcL (4.3-11.1)
[2020-08-22 06:52] LABS: BUN/Creatinine Ratio 24 (6-26); Blood Urea Nitrogen 22 mg/dL (8-23); Calcium 9.4 mg/dL (8.6-10.3); Carbon Dioxide 31 mEq/L (23-29); Chloride 101 mEq/L (98-107); Glucose 118 mg/dL (70-105); Osmolality,Calculated 288 (280-300); Potassium 3.8 mEq/L (3.5-5.1); Sodium 137 mEq/L (136-145); eGFR For African Americans > 60 (> 60); eGFR For Non-African Americans > 60 (> 60)
[2020-08-22] MEDS: amLODIPine 5 MG TABLET PO SCH (07:57)
[2020-08-22] MEDS: Aspirin Enteric Coated 81 MG Tablet PO SCH (07:57)
[2020-08-22] MEDS: cefTRIAXone 2,000 MG in Water for inj. (sterile) 20 ML IVP SCH (07:57)
[2020-08-22 14:49] VITALS: BP 147/67
[2020-08-22] MEDS: Azithromycin 250 MG TABLET PO SCH (16:36)
== END 2020-08-22 17:14 | disposition home health service (06) | DRG 689 ==
LOC: EMEROOARM 13:12 → 3ANU 13:12
PROVIDERS: ADMIT Internal Medicine; ATTEND Internal Medicine

== ENCOUNTER 2020-08-26 01:27 | Inpatient (IN) ==
[2020-08-26] MEDS ORDERED: Ondansetron 4 MG/2 ML VIAL IVP ONE (01:44)
[2020-08-26] MEDS ORDERED: *HR* FentaNYL (PF) 100 MCG/2 ML VIAL IVP ONE (01:44)
[2020-08-26] MEDS ORDERED: 0.9 % Sodium Chloride 1,000 ML IVC ONE (01:44)
[2020-08-26 03:49] LABS: Red Cell Distribution Width 13.5 % (11.5-14.5)
[2020-08-26 03:51] LABS: Basophils % 0.3 %; Eosinophils # 0.2 K/mcL (0.0-0.6); Eosinophils % 2.3 %; Hematocrit 35.2 % (37.5-50.1); Immature Granulocytes % 0.4 % (0-4); Immature Platelets 7.1 % (1.1-6.1); Lymphocytes % 6.2 %; Mean Corpuscular HGB Conc 31.3 g/dL (31.6-35.5); Mean Corpuscular Hemoglobin 28.2 pg (28.0-33.3); Mean Corpuscular Volume 90.3 fL (83.0-100.0); Mean Platelet Volume 11.7 fL (9.4-12.4); Monocytes # 0.5 K/mcL (0.0-1.3); Monocytes % 4.9 %; Platelet Count 188 K/mcL (140-400); Segmented Neutrophils % 85.9 %; White Blood Count 10.4 K/mcL (4.3-11.1)
[2020-08-26 03:53] LABS: Alanine Aminotransferase 34 Units/L (7-52); Albumin 3.1 g/dL (3.5-5.7); Albumin/Globulin Ratio 1.1 (1.1-2.2); Alkaline Phosphatase 93 Units/L (34-104); Aspartate Amino Transferase 54 Units/L (13-39); BUN/Creatinine Ratio 27 (6-26); Bilirubin,Direct 0.1 mg/dL (0.0-0.2); Bilirubin,Indirect 0.3 mg/dL (0.0-1.0); Bilirubin,Total 0.4 mg/dL (0.3-1.0); Blood Urea Nitrogen 25 mg/dL (8-23); Carbon Dioxide 30 mEq/L (23-29); Chloride 102 mEq/L (98-107); Globulin 2.8 g/dL (2.4-3.5); Glucose 135 mg/dL (70-105); Lipase 188 Units/L (11-82); Osmolality,Calculated 292 (280-300); Potassium 4.2 mEq/L (3.5-5.1); Sodium 138 mEq/L (136-145); Total Protein 5.9 g/dL (6.4-8.9); Troponin I < 0.03 ng/mL (< 0.04); eGFR For African Americans > 60 (> 60); eGFR For Non-African Americans > 60 (> 60)
[2020-08-26 04:09] LABS: Lymphocytes # 0.6 K/mcL (0.6-4.6); Neutrophils # 8.9 K/mcL (1.6-8.9)
[2020-08-26] MEDS ORDERED: 0.9 % Sodium Chloride 1,000 ML IVC SCH (04:15)
[2020-08-26] MEDS ORDERED: Naloxone 0.4 MG/ML INJ IVP PRN (04:24)
[2020-08-26] MEDS ORDERED: Ondansetron 4 MG/2 ML VIAL IVP PRN (04:24)
[2020-08-26 05:18] LABS: Bacteria,Urine Few per hpf (None-Few); Bilirubin,Urine Negative (Negative); Blood,Urine Negative (Negative); Clarity,Urine Clear (Clear); Color,Urine Light-Yellow (Yellow); Glucose,Urine (UA) Normal (Normal); Hyaline Casts,Urine Few per lpf (None Seen); Ketones,Urine Negative (Negative); Leukocyte Esterase,Urine Trace (Negative); Mucus,Urine Few per lpf (None-Few); Nitrite,Urine Negative (Negative); PH,Urine 6.5 pH Units (5.0-8.0); Protein,Urine Trace mg/dL (Neg-Trace); Specific Gravity,Urine 1.019 (1.010-1.025); Squamous Epithelial Cell,Urine Few per hpf (None-Few); Urobilinogen,Urine Normal (Normal)
[2020-08-26] MEDS: *HR* Heparin 5,000 UNIT/ML VIAL SQ SCH ×2 (06:28→18:46)
[2020-08-26] MEDS: 0.9 % Sodium Chloride 1,000 ML IVC SCH ×2 (06:28→18:43)
[2020-08-26] MEDS: Ipratropium/Albuterol Neb 3 ML IH PRN (06:35)
[2020-08-26 06:44] LABS: Chol/HDL Ratio 3.6 (0-4.9); Cholesterol 103 mg/dL (< 200); Ethanol < 10 mg/dL (Less than 10); HDL Cholesterol 29 mg/dL (40-59); LDL Cholesterol,Calculated 64 mg/dL (< 100); Triglycerides 50 mg/dL (< 150)
[2020-08-26] MEDS ORDERED: cefTRIAXone 1,000 MG in Water for inj. (sterile) 10 ML IVP SCH (09:00)
[2020-08-26] MEDS: amLODIPine 5 MG TABLET PO SCH (12:11)
[2020-08-26] MEDS: Aspirin Enteric Coated 81 MG Tablet PO SCH (12:11)
[2020-08-27] MEDS: *HR* Heparin 5,000 UNIT/ML VIAL SQ SCH ×2 (05:14→17:59)
[2020-08-27 06:03] LABS: Basophils # 0.1 K/mcL (0.0-0.2); Basophils % 0.9 %; Eosinophils # 0.5 K/mcL (0.0-0.6); Eosinophils % 9.6 %; Hematocrit 35.9 % (37.5-50.1); Immature Granulocytes % 0.4 % (0-4); Lymphocytes # 1.4 K/mcL (0.6-4.6); Lymphocytes % 24.3 %; Mean Corpuscular HGB Conc 30.6 g/dL (31.6-35.5); Mean Corpuscular Hemoglobin 28.2 pg (28.0-33.3); Mean Corpuscular Volume 92.1 fL (83.0-100.0); Mean Platelet Volume 11.3 fL (9.4-12.4); Monocytes # 0.5 K/mcL (0.0-1.3); Monocytes % 8.9 %; Neutrophils # 3.2 K/mcL (1.6-8.9); Platelet Count 184 K/mcL (140-400); Red Cell Distribution Width 13.5 % (11.5-14.5); Segmented Neutrophils % 55.9 %; White Blood Count 5.6 K/mcL (4.3-11.1)
[2020-08-27 06:18] LABS: Alanine Aminotransferase 26 Units/L (7-52); Albumin 3.1 g/dL (3.5-5.7); Albumin/Globulin Ratio 1.2 (1.1-2.2); Alkaline Phosphatase 83 Units/L (34-104); Aspartate Amino Transferase 24 Units/L (13-39); BUN/Creatinine Ratio 19 (6-26); Bilirubin,Total 0.3 mg/dL (0.3-1.0); Blood Urea Nitrogen 18 mg/dL (8-23); Calcium 8.6 mg/dL (8.6-10.3); Carbon Dioxide 30 mEq/L (23-29); Chloride 106 mEq/L (98-107); Globulin 2.6 g/dL (2.4-3.5); Glucose 90 mg/dL (70-105); Magnesium 1.8 mg/dL (1.6-2.6); Osmolality,Calculated 289 (280-300); Potassium 4.2 mEq/L (3.5-5.1); Sodium 139 mEq/L (136-145); Total Protein 5.7 g/dL (6.4-8.9); eGFR For African Americans > 60 (> 60); eGFR For Non-African Americans > 60 (> 60)
[2020-08-27] MEDS: amLODIPine 5 MG TABLET PO SCH (08:29)
[2020-08-27] MEDS: Aspirin Enteric Coated 81 MG Tablet PO SCH (11:59)
[2020-08-28] MEDS: *HR* Heparin 5,000 UNIT/ML VIAL SQ SCH ×2 (06:55→16:39)
[2020-08-28] MEDS: amLODIPine 5 MG TABLET PO SCH (09:04)
[2020-08-28 09:26] LABS: Basophils % 0.6 %; Eosinophils # 0.4 K/mcL (0.0-0.6); Eosinophils % 6.1 %; Hematocrit 35.8 % (37.5-50.1); Hemoglobin 11.5 g/dL (12.9-16.9); Immature Granulocytes % 0.2 % (0-4); Lymphocytes # 1.4 K/mcL (0.6-4.6); Mean Corpuscular HGB Conc 32.1 g/dL (31.6-35.5); Mean Corpuscular Volume 90.4 fL (83.0-100.0); Mean Platelet Volume 11.1 fL (9.4-12.4); Monocytes # 0.5 K/mcL (0.0-1.3); Monocytes % 7.8 %; Neutrophils # 4.2 K/mcL (1.6-8.9); Platelet Count 204 K/mcL (140-400); Red Blood Count 3.96 M/mcL (4.19-5.50); Red Cell Distribution Width 13.4 % (11.5-14.5); Segmented Neutrophils % 64.3 %; White Blood Count 6.6 K/mcL (4.3-11.1)
[2020-08-28 09:46] LABS: BUN/Creatinine Ratio 16 (6-26); Blood Urea Nitrogen 14 mg/dL (8-23); Carbon Dioxide 30 mEq/L (23-29); Chloride 103 mEq/L (98-107); Glucose 116 mg/dL (70-105); Osmolality,Calculated 287 (280-300); Potassium 4.1 mEq/L (3.5-5.1); Sodium 138 mEq/L (136-145); eGFR For African Americans > 60 (> 60); eGFR For Non-African Americans > 60 (> 60)
[2020-08-28] MEDS: Aspirin Enteric Coated 81 MG Tablet PO SCH (11:06)
[2020-08-28] MEDS: Ipratropium/Albuterol Neb 3 ML IH PRN (21:50)
[2020-08-29] MEDS: *HR* Heparin 5,000 UNIT/ML VIAL SQ SCH ×2 (05:51→19:37)
[2020-08-29 06:43] LABS: Basophils # 0.1 K/mcL (0.0-0.2); Basophils % 0.7 %; Eosinophils # 0.4 K/mcL (0.0-0.6); Eosinophils % 5.9 %; Hematocrit 37.5 % (37.5-50.1); Hemoglobin 11.8 g/dL (12.9-16.9); Immature Granulocytes % 0.4 % (0-4); Lymphocytes # 1.6 K/mcL (0.6-4.6); Lymphocytes % 21.4 %; Mean Corpuscular HGB Conc 31.5 g/dL (31.6-35.5); Mean Corpuscular Hemoglobin 28.4 pg (28.0-33.3); Mean Corpuscular Volume 90.1 fL (83.0-100.0); Monocytes # 0.7 K/mcL (0.0-1.3); Neutrophils # 4.5 K/mcL (1.6-8.9); Platelet Count 206 K/mcL (140-400); Red Blood Count 4.16 M/mcL (4.19-5.50); Red Cell Distribution Width 13.6 % (11.5-14.5); Segmented Neutrophils % 62.6 %; White Blood Count 7.2 K/mcL (4.3-11.1)
[2020-08-29 06:55] LABS: BUN/Creatinine Ratio 15 (6-26); Blood Urea Nitrogen 14 mg/dL (8-23); Calcium 9.1 mg/dL (8.6-10.3); Carbon Dioxide 29 mEq/L (23-29); Chloride 104 mEq/L (98-107); Glucose 109 mg/dL (70-105); Osmolality,Calculated 289 (280-300); Potassium 4.1 mEq/L (3.5-5.1); Sodium 139 mEq/L (136-145); eGFR For African Americans > 60 (> 60); eGFR For Non-African Americans > 60 (> 60)
[2020-08-29] MEDS: amLODIPine 5 MG TABLET PO SCH (08:41)
[2020-08-29] MEDS: Aspirin Enteric Coated 81 MG Tablet PO SCH (11:35)
[2020-08-30] MEDS: *HR* Heparin 5,000 UNIT/ML VIAL SQ SCH ×2 (06:47→18:00)
[2020-08-30 07:02] LABS: Hematocrit 38.6 % (37.5-50.1); Mean Corpuscular HGB Conc 31.1 g/dL (31.6-35.5); Mean Corpuscular Hemoglobin 27.7 pg (28.0-33.3); Mean Corpuscular Volume 89.1 fL (83.0-100.0); Mean Platelet Volume 10.9 fL (9.4-12.4); Platelet Count 214 K/mcL (140-400); Red Blood Count 4.33 M/mcL (4.19-5.50); Red Cell Distribution Width 13.9 % (11.5-14.5)
[2020-08-30 07:12] LABS: BUN/Creatinine Ratio 19 (6-26); Blood Urea Nitrogen 19 mg/dL (8-23); Calcium 9.3 mg/dL (8.6-10.3); Carbon Dioxide 29 mEq/L (23-29); Chloride 103 mEq/L (98-107); Glucose 108 mg/dL (70-105); Osmolality,Calculated 289 (280-300); Potassium 4.2 mEq/L (3.5-5.1); Sodium 138 mEq/L (136-145); eGFR For African Americans > 60 (> 60); eGFR For Non-African Americans > 60 (> 60)
[2020-08-30] MEDS: Aspirin Enteric Coated 81 MG Tablet PO SCH (10:03)
[2020-08-30] MEDS: amLODIPine 5 MG TABLET PO SCH (10:04)
[2020-08-31] MEDS: *HR* Heparin 5,000 UNIT/ML VIAL SQ SCH ×2 (05:35→18:41)
[2020-08-31] MEDS: amLODIPine 5 MG TABLET PO SCH (09:45)
[2020-08-31] MEDS: Aspirin Enteric Coated 81 MG Tablet PO SCH (12:34)
[2020-08-31 18:13] LABS: Adenovirus Not Detected (Not Detect); Coronavirus 229E Not Detected (Not Detect); Coronavirus HKU1 Not Detected (Not Detect); Coronavirus NL63 Not Detected (Not Detect)
[2020-08-31 18:14] LABS: Bordetella Pertussis Not Detected (Not Detect); Chlamydophila pneumoniae Not Detected (Not Detect); Coronavirus OC43 Not Detected (Not Detect); Human Metapneumovirus Not Detected (Not Detect); Human Rhinovirus/Enterovirus Not Detected (Not Detect); Influenza A Subtype 2009 H1 Not Detected (Not Detect); Influenza B Not Detected (Not Detect); Mycoplasma pneumoniae Not Detected (Not Detect); Parainfluenza Virus 1 Not Detected (Not Detect); Parainfluenza Virus 2 Not Detected (Not Detect); Parainfluenza Virus 3 Not Detected (Not Detect); Parainfluenza Virus 4 Not Detected (Not Detect); Respiratory Syncytial Virus Not Detected (Not Detect); SARS-CoV-2 Not Detected (Not Detect)
[2020-08-31 19:09] VITALS: BP 144/74
== END 2020-08-31 19:43 | disposition other institution (70) | DRG 727 ==
LOC: EMEROOARM 01:27 → 3ANU 01:27
PROVIDERS: ADMIT Student in an Organized Health Care Education/Training Program; ATTEND Student in an Organized Health Care Education/Training Program

== ENCOUNTER 2020-11-13 15:56 | Inpatient (IN) ==
[2020-11-13] MEDS ORDERED: Isovue-370 500 ML BOTTLE IVP ONE (16:16)
[2020-11-13 16:25] LABS: Basophils % 0.5 %; Eosinophils # 0.3 K/mcL (0.0-0.6); Eosinophils % 4.1 %; Hematocrit 38.8 % (37.5-50.1); Hemoglobin 12.3 g/dL (12.9-16.9); Immature Granulocytes % 0.3 % (0-4); Lymphocytes # 1.7 K/mcL (0.6-4.6); Lymphocytes % 23.3 %; Mean Corpuscular HGB Conc 31.7 g/dL (31.6-35.5); Mean Corpuscular Hemoglobin 29.5 pg (28.0-33.3); Mean Platelet Volume 10.7 fL (9.4-12.4); Monocytes # 0.6 K/mcL (0.0-1.3); Monocytes % 7.7 %; Neutrophils # 4.7 K/mcL (1.6-8.9); Platelet Count 163 K/mcL (140-400); Red Blood Count 4.17 M/mcL (4.19-5.50); Red Cell Distribution Width 16.2 % (11.5-14.5); Segmented Neutrophils % 64.1 %; White Blood Count 7.3 K/mcL (4.3-11.1)
[2020-11-13 16:37] LABS: INR 1.1; Prothrombin Time 12.2 Seconds (9.4-12.1)
[2020-11-13 16:40] LABS: Activated Partial Thrombo Time 31.6 Seconds (26.0-36.0)
[2020-11-13 16:56] LABS: Alanine Aminotransferase 10 Units/L (7-52); Albumin 3.8 g/dL (3.5-5.7); Albumin/Globulin Ratio 1.5 (1.1-2.2); Alkaline Phosphatase 103 Units/L (34-104); Aspartate Amino Transferase 14 Units/L (13-39); BUN/Creatinine Ratio 13 (6-26); Bilirubin,Direct 0.1 mg/dL (0.0-0.2); Bilirubin,Indirect 0.4 mg/dL (0.0-1.0); Bilirubin,Total 0.5 mg/dL (0.3-1.0); Blood Urea Nitrogen 13 mg/dL (8-23); Calcium 9.2 mg/dL (8.6-10.3); Carbon Dioxide 30 mEq/L (23-29); Chloride 108 mEq/L (98-107); Globulin 2.6 g/dL (2.4-3.5); Glucose 100 mg/dL (70-105); Lipase 40 Units/L (11-82); Magnesium 2.1 mg/dL (1.6-2.6); Osmolality,Calculated 296 (280-300); Phosphorous 3.7 mg/dL (2.7-4.5); Potassium 3.8 mEq/L (3.5-5.1); Sodium 143 mEq/L (136-145); Total Protein 6.4 g/dL (6.4-8.9); Troponin I < 0.03 ng/mL (< 0.04); eGFR For African Americans > 60 (> 60); eGFR For Non-African Americans > 60 (> 60)
[2020-11-13 17:44] LABS: Adenovirus Not Detected (Not Detect); Bordetella Pertussis Not Detected (Not Detect); Chlamydophila pneumoniae Not Detected (Not Detect); Coronavirus 229E Not Detected (Not Detect); Coronavirus HKU1 Not Detected (Not Detect); Coronavirus NL63 Not Detected (Not Detect); Coronavirus OC43 Not Detected (Not Detect); Human Metapneumovirus Not Detected (Not Detect); Human Rhinovirus/Enterovirus Not Detected (Not Detect); Influenza A Subtype 2009 H1 Not Detected (Not Detect); Influenza B Not Detected (Not Detect); Mycoplasma pneumoniae Not Detected (Not Detect); Parainfluenza Virus 1 Not Detected (Not Detect); Parainfluenza Virus 2 Not Detected (Not Detect); Parainfluenza Virus 3 Not Detected (Not Detect); Parainfluenza Virus 4 Not Detected (Not Detect); Respiratory Syncytial Virus Not Detected (Not Detect); SARS-CoV-2 Not Detected (Not Detect)
[2020-11-13 18:04] LABS: Bacteria,Urine Few per hpf (None-Few); Bilirubin,Urine Negative (Negative); Blood,Urine Small (Negative); Clarity,Urine Clear (Clear); Color,Urine Light-Yellow (Yellow); Glucose,Urine (UA) Normal (Normal); Ketones,Urine Negative (Negative); Leukocyte Esterase,Urine Negative (Negative); Mucus,Urine Few per lpf (None-Few); Nitrite,Urine Negative (Negative); PH,Urine 5.5 pH Units (5.0-8.0); Protein,Urine Negative (Neg-Trace); Specific Gravity,Urine 1.012 (1.010-1.025); Squamous Epithelial Cell,Urine Few per hpf (None-Few); Urobilinogen,Urine Normal (Normal); WBC,Urine 0-3 per hpf (0-3)
[2020-11-13] MEDS ORDERED: methylPREDNISolone 125 MG/2 ML VIAL IVP ONE (19:53)
[2020-11-13] MEDS ORDERED: Azithromycin 500 MG in 0.9 % Sodium Chloride 250 ML IVPB ONE (19:53)
[2020-11-13] MEDS ORDERED: Ipratropium/Albuterol Neb 3 ML IH ONE (19:53)
[2020-11-13] MEDS ORDERED: Acetaminophen 325 MG TABLET PO PRN (20:28)
[2020-11-13] MEDS ORDERED: Ondansetron 4 MG/2 ML VIAL IVP PRN (20:28)
[2020-11-13] MEDS ORDERED: Naloxone 0.4 MG/ML INJ IVP PRN (20:28)
[2020-11-13] MEDS ORDERED: Ipratropium/Albuterol Neb 3 ML IH PRN (20:33)
[2020-11-13] MEDS ORDERED: Furosemide 20 MG/2 ML VIAL IVP ONE (20:52)
[2020-11-13] MEDS ORDERED: Perflutren Lipid Microsphere 1.3 ML in 0.9 % Sodium Chloride 8.7 ML IVP PRN (22:23)
[2020-11-13 23:00] LABS: ABG Base Excess 3 mEq/L (-2 to 3); ABG HCO3 30 mEq/L (21-27); ABG Oxygen Saturation 89 % (95-98); ABG PCO2 56 mmHg (35-45); ABG PH 7.33 pH Units (7.32-7.45); ABG PO2 63 mmHg (85-104); ABG TCO2 31 mEq/L (20-26)
[2020-11-13] MEDS: Ipratropium/Albuterol Neb 3 ML IH SCH (23:00)
[2020-11-14] MEDS: Ipratropium/Albuterol Neb 3 ML IH SCH ×6 (04:23→23:54)
[2020-11-14 05:22] LABS: Basophils % 0.6 %; Eosinophils % 0.2 %; Hematocrit 40.1 % (37.5-50.1); Hemoglobin 12.6 g/dL (12.9-16.9); Immature Granulocytes % 0.2 % (0-4); Lymphocytes # 0.7 K/mcL (0.6-4.6); Lymphocytes % 14.4 %; Mean Corpuscular HGB Conc 31.4 g/dL (31.6-35.5); Mean Corpuscular Hemoglobin 28.9 pg (28.0-33.3); Mean Platelet Volume 10.8 fL (9.4-12.4); Monocytes # 0.1 K/mcL (0.0-1.3); Monocytes % 1.1 %; Platelet Count 166 K/mcL (140-400); Red Blood Count 4.36 M/mcL (4.19-5.50); Red Cell Distribution Width 15.7 % (11.5-14.5); Segmented Neutrophils % 83.5 %; White Blood Count 4.7 K/mcL (4.3-11.1)
[2020-11-14 05:28] LABS: Neutrophils # 3.9 K/mcL (1.6-8.9)
[2020-11-14] MEDS: Doxycycline 100 MG in 0.9 % Sodium Chloride Mini Bag 100 ML IVPB SCH ×2 (05:33→17:45)
[2020-11-14] MEDS: MethylPREDNISolone 40 MG/ML VIAL IVP SCH ×2 (05:34→17:31)
[2020-11-14] MEDS: *HR* Enoxaparin 40 MG/0.4 ML SYRINGE SQ SCH (05:34)
[2020-11-14 05:41] LABS: Platelet Estimate Normal (Normal)
[2020-11-14 05:43] LABS: BUN/Creatinine Ratio 15 (6-26); Blood Urea Nitrogen 14 mg/dL (8-23); C-Reactive Protein 7 mg/L (Less than 10); Calcium 9.1 mg/dL (8.6-10.3); Carbon Dioxide 29 mEq/L (23-29); Chloride 107 mEq/L (98-107); Glucose 135 mg/dL (70-105); Magnesium 2.3 mg/dL (1.6-2.6); Osmolality,Calculated 299 (280-300); Potassium 4.1 mEq/L (3.5-5.1); Sodium 143 mEq/L (136-145); eGFR For African Americans > 60 (> 60); eGFR For Non-African Americans > 60 (> 60)
[2020-11-14] MEDS: cefTRIAXone 1,000 MG in Water for inj. (sterile) 10 ML IVP SCH (08:16)
[2020-11-15 01:56] LABS: Hematocrit 32.8 % (37.5-50.1); Hemoglobin 10.2 g/dL (12.9-16.9); Mean Corpuscular HGB Conc 31.1 g/dL (31.6-35.5); Mean Corpuscular Hemoglobin 28.7 pg (28.0-33.3); Mean Corpuscular Volume 92.1 fL (83.0-100.0); Mean Platelet Volume 11.5 fL (9.4-12.4); Platelet Count 155 K/mcL (140-400); Red Blood Count 3.56 M/mcL (4.19-5.50); Red Cell Distribution Width 15.4 % (11.5-14.5); White Blood Count 8.9 K/mcL (4.3-11.1)
[2020-11-15 02:16] LABS: BUN/Creatinine Ratio 22 (6-26); Blood Urea Nitrogen 29 mg/dL (8-23); Calcium 8.8 mg/dL (8.6-10.3); Carbon Dioxide 29 mEq/L (23-29); Chloride 103 mEq/L (98-107); Glucose 170 mg/dL (70-105); Osmolality,Calculated 296 (280-300); Potassium 3.9 mEq/L (3.5-5.1); Sodium 138 mEq/L (136-145); eGFR For African Americans > 60 (> 60); eGFR For Non-African Americans 53 (> 60)
[2020-11-15] MEDS: Ipratropium/Albuterol Neb 3 ML IH SCH ×6 (03:46→23:44)
[2020-11-15] MEDS: Doxycycline 100 MG in 0.9 % Sodium Chloride Mini Bag 100 ML IVPB SCH (06:04)
[2020-11-15] MEDS: MethylPREDNISolone 40 MG/ML VIAL IVP SCH ×2 (06:05→18:26)
[2020-11-15] MEDS: *HR* Enoxaparin 40 MG/0.4 ML SYRINGE SQ SCH (06:05)
[2020-11-15] MEDS: cefTRIAXone 1,000 MG in Water for inj. (sterile) 10 ML IVP SCH (08:36)
[2020-11-15] MEDS: Doxycycline 100 MG CAPSULE PO SCH (21:01)
[2020-11-16] MEDS: Ipratropium/Albuterol Neb 3 ML IH SCH ×6 (03:05→23:11)
[2020-11-16 05:37] LABS: Hemoglobin 10.2 g/dL (12.9-16.9); Mean Corpuscular HGB Conc 31.9 g/dL (31.6-35.5); Mean Corpuscular Hemoglobin 29.1 pg (28.0-33.3); Mean Corpuscular Volume 91.4 fL (83.0-100.0); Mean Platelet Volume 11.6 fL (9.4-12.4); Platelet Count 141 K/mcL (140-400); Red Cell Distribution Width 16.2 % (11.5-14.5)
[2020-11-16 06:01] LABS: BUN/Creatinine Ratio 24 (6-26); Blood Urea Nitrogen 26 mg/dL (8-23); Calcium 8.8 mg/dL (8.6-10.3); Carbon Dioxide 28 mEq/L (23-29); Chloride 104 mEq/L (98-107); Glucose 144 mg/dL (70-105); Osmolality,Calculated 295 (280-300); Sodium 139 mEq/L (136-145); eGFR For African Americans > 60 (> 60); eGFR For Non-African Americans > 60 (> 60)
[2020-11-16] MEDS: MethylPREDNISolone 40 MG/ML VIAL IVP SCH (06:05)
[2020-11-16] MEDS: *HR* Enoxaparin 40 MG/0.4 ML SYRINGE SQ SCH (06:05)
[2020-11-16] MEDS: cefTRIAXone 1,000 MG in Water for inj. (sterile) 10 ML IVP SCH (08:38)
[2020-11-16] MEDS: predniSONE 20 MG TABLET PO SCH (08:38)
[2020-11-16] MEDS: Doxycycline 100 MG CAPSULE PO SCH ×2 (08:38→22:24)
[2020-11-17] MEDS: Ipratropium/Albuterol Neb 3 ML IH SCH ×6 (04:01→23:40)
[2020-11-17] MEDS: *HR* Enoxaparin 40 MG/0.4 ML SYRINGE SQ SCH (05:24)
[2020-11-17] MEDS: Doxycycline 100 MG CAPSULE PO SCH ×2 (07:43→20:46)
[2020-11-17] MEDS: predniSONE 20 MG TABLET PO SCH (07:43)
[2020-11-17] MEDS: Aspirin Enteric Coated 81 MG Tablet PO SCH (07:43)
[2020-11-17] MEDS: cefTRIAXone 1,000 MG in Water for inj. (sterile) 10 ML IVP SCH (07:43)
[2020-11-17] MEDS: Divalproex (24 HR) 250 MG TABLET PO SCH (20:46)
[2020-11-18 04:27] LABS: Mean Corpuscular HGB Conc 31.3 g/dL (31.6-35.5); Mean Corpuscular Volume 92.7 fL (83.0-100.0); Mean Platelet Volume 11.9 fL (9.4-12.4); Platelet Count 144 K/mcL (140-400); Red Cell Distribution Width 16.1 % (11.5-14.5); White Blood Count 7.4 K/mcL (4.3-11.1)
[2020-11-18 04:32] LABS: Alanine Aminotransferase 9 Units/L (7-52); Albumin 3.5 g/dL (3.5-5.7); Albumin/Globulin Ratio 1.6 (1.1-2.2); Alkaline Phosphatase 75 Units/L (34-104); Aspartate Amino Transferase 12 Units/L (13-39); BUN/Creatinine Ratio 23 (6-26); Bilirubin,Total 0.5 mg/dL (0.3-1.0); Blood Urea Nitrogen 21 mg/dL (8-23); Calcium 8.9 mg/dL (8.6-10.3); Carbon Dioxide 30 mEq/L (23-29); Chloride 104 mEq/L (98-107); Globulin 2.2 g/dL (2.4-3.5); Glucose 101 mg/dL (70-105); Magnesium 1.9 mg/dL (1.6-2.6); Osmolality,Calculated 291 (280-300); Potassium 3.8 mEq/L (3.5-5.1); Sodium 139 mEq/L (136-145); Total Protein 5.7 g/dL (6.4-8.9); eGFR For African Americans > 60 (> 60); eGFR For Non-African Americans > 60 (> 60)
[2020-11-18 04:40] LABS: Hemoglobin 11.9 g/dL (12.9-16.9)
[2020-11-18] MEDS: Ipratropium/Albuterol Neb 3 ML IH SCH ×6 (04:56→23:41)
[2020-11-18] MEDS: *HR* Enoxaparin 40 MG/0.4 ML SYRINGE SQ SCH (05:05)
[2020-11-18] MEDS: Aspirin Enteric Coated 81 MG Tablet PO SCH (08:32)
[2020-11-18] MEDS: predniSONE 20 MG TABLET PO SCH (08:32)
[2020-11-18] MEDS: cefTRIAXone 1,000 MG in Water for inj. (sterile) 10 ML IVP SCH (08:32)
[2020-11-18] MEDS: Doxycycline 100 MG CAPSULE PO SCH ×2 (08:32→20:56)
[2020-11-18] MEDS: Divalproex (24 HR) 250 MG TABLET PO SCH (20:56)
[2020-11-19] MEDS: Ipratropium/Albuterol Neb 3 ML IH SCH ×4 (03:37→15:51)
[2020-11-19] MEDS: *HR* Enoxaparin 40 MG/0.4 ML SYRINGE SQ SCH (06:22)
[2020-11-19] MEDS: Doxycycline 100 MG CAPSULE PO SCH (07:49)
[2020-11-19] MEDS: Aspirin Enteric Coated 81 MG Tablet PO SCH (07:49)
[2020-11-19] MEDS: predniSONE 20 MG TABLET PO SCH (07:49)
[2020-11-19] MEDS: cefTRIAXone 1,000 MG in Water for inj. (sterile) 10 ML IVP SCH (07:49)
[2020-11-19 16:21] VITALS: BP 108/57
[2020-11-19 16:51] LABS: Adenovirus Not Detected (Not Detect); Coronavirus 229E Not Detected (Not Detect); Coronavirus HKU1 Not Detected (Not Detect); Coronavirus NL63 Not Detected (Not Detect); Coronavirus OC43 Not Detected (Not Detect); Human Metapneumovirus Not Detected (Not Detect); Human Rhinovirus/Enterovirus Not Detected (Not Detect); Influenza A Subtype 2009 H1 Not Detected (Not Detect); SARS-CoV-2 Not Detected (Not Detect)
[2020-11-19 16:52] LABS: Bordetella Pertussis Not Detected (Not Detect); Chlamydophila pneumoniae Not Detected (Not Detect); Influenza B Not Detected (Not Detect); Mycoplasma pneumoniae Not Detected (Not Detect); Parainfluenza Virus 1 Not Detected (Not Detect); Parainfluenza Virus 2 Not Detected (Not Detect); Parainfluenza Virus 3 Not Detected (Not Detect); Parainfluenza Virus 4 Not Detected (Not Detect); Respiratory Syncytial Virus Not Detected (Not Detect)
== END 2020-11-19 17:45 | DRG 190 ==
LOC: EDBD → 3ANU 15:56 → EMEROOARM 15:56 → SUATTDRO 21:02 → MERGE 21:02 → 3ANU 21:46
PROVIDERS: ADMIT Student in an Organized Health Care Education/Training Program; ATTEND Internal Medicine

== ENCOUNTER 2021-01-08 12:56 | Inpatient (IN) ==
[2021-01-08] MEDS ORDERED: Nystatin POWDER 30 GM BOTTLE TP STA (13:37)
[2021-01-08 13:45] LABS: Hemoglobin 12.9 g/dL (12.9-16.9); Immature Granulocytes % 0.2 % (0-4); Mean Platelet Volume 11.7 fL (9.4-12.4)
[2021-01-08 13:47] LABS: Basophils % 0.6 %; Eosinophils # 0.3 K/mcL (0.0-0.6); Eosinophils % 4.1 %; Hematocrit 40.4 % (37.5-50.1); Immature Platelets 7.3 % (1.1-6.1); Lymphocytes # 1.4 K/mcL (0.6-4.6); Mean Corpuscular HGB Conc 31.9 g/dL (31.6-35.5); Mean Corpuscular Hemoglobin 29.5 pg (28.0-33.3); Mean Corpuscular Volume 92.4 fL (83.0-100.0); Monocytes # 0.5 K/mcL (0.0-1.3); Monocytes % 8.2 %; Platelet Count 117 K/mcL (140-400); Red Blood Count 4.37 M/mcL (4.19-5.50); Red Cell Distribution Width 14.4 % (11.5-14.5); Segmented Neutrophils % 64.9 %; White Blood Count 6.4 K/mcL (4.3-11.1)
[2021-01-08 13:50] LABS: Neutrophils # 4.2 K/mcL (1.6-8.9)
[2021-01-08 14:13] LABS: Alanine Aminotransferase 7 Units/L (7-52); Albumin 3.9 g/dL (3.5-5.7); Albumin/Globulin Ratio 1.6 (1.1-2.2); Alkaline Phosphatase 89 Units/L (34-104); Aspartate Amino Transferase 12 Units/L (13-39); BUN/Creatinine Ratio 21 (6-26); Bilirubin,Total 0.4 mg/dL (0.3-1.0); Blood Urea Nitrogen 20 mg/dL (8-23); Calcium 9.3 mg/dL (8.6-10.3); Carbon Dioxide 32 mEq/L (23-29); Chloride 105 mEq/L (98-107); Globulin 2.4 g/dL (2.4-3.5); Glucose 139 mg/dL (70-105); Osmolality,Calculated 301 (280-300); Potassium 4.1 mEq/L (3.5-5.1); Sodium 143 mEq/L (136-145); Total Protein 6.3 g/dL (6.4-8.9); eGFR For African Americans > 60 (> 60); eGFR For Non-African Americans > 60 (> 60)
[2021-01-08 14:25] LABS: Troponin I < 0.03 ng/mL (< 0.04)
[2021-01-08] MEDS ORDERED: Naloxone 0.4 MG/ML INJ IVP PRN (15:12)
[2021-01-08] MEDS ORDERED: Ondansetron 4 MG/2 ML VIAL IVP PRN (15:12)
[2021-01-08] MEDS ORDERED: Haloperidol Lactate 5 MG/ML VIAL IVP PRN (15:18)
[2021-01-08] MEDS: *HR* Heparin 5,000 UNIT/ML VIAL SQ SCH (19:44)
[2021-01-08] MEDS: Divalproex (24 HR) 250 MG TABLET PO SCH (21:12)
[2021-01-08] MEDS: Nystatin POWDER 30 GM BOTTLE TP SCH (21:12)
[2021-01-08] MEDS: QUEtiapine Fumarate 25 MG TABLET PO SCH (21:12)
[2021-01-08] MEDS: Budesonide/Formoterol 160/4.5 1 PUFF INH IH SCH (22:40)
[2021-01-09 04:52] LABS: Basophils % 0.7 %; Hemoglobin 11.9 g/dL (12.9-16.9); Immature Granulocytes % 0.3 % (0-4)
[2021-01-09 04:54] LABS: Basophils # 0.1 K/mcL (0.0-0.2); Eosinophils # 0.5 K/mcL (0.0-0.6); Eosinophils % 6.6 %; Hematocrit 36.9 % (37.5-50.1); Immature Platelets 6.4 % (1.1-6.1); Lymphocytes # 1.9 K/mcL (0.6-4.6); Lymphocytes % 25.7 %; Mean Corpuscular HGB Conc 32.2 g/dL (31.6-35.5); Mean Corpuscular Hemoglobin 30.3 pg (28.0-33.3); Mean Corpuscular Volume 93.9 fL (83.0-100.0); Mean Platelet Volume 11.9 fL (9.4-12.4); Monocytes # 0.7 K/mcL (0.0-1.3); Monocytes % 9.7 %; Neutrophils # 4.1 K/mcL (1.6-8.9); Platelet Count 115 K/mcL (140-400); Red Blood Count 3.93 M/mcL (4.19-5.50); Red Cell Distribution Width 14.3 % (11.5-14.5); White Blood Count 7.2 K/mcL (4.3-11.1)
[2021-01-09] MEDS: *HR* Heparin 5,000 UNIT/ML VIAL SQ SCH ×2 (05:10→21:30)
[2021-01-09 06:48] LABS: BUN/Creatinine Ratio 24 (6-26); Blood Urea Nitrogen 22 mg/dL (8-23); Calcium 8.9 mg/dL (8.6-10.3); Carbon Dioxide 30 mEq/L (23-29); Chloride 106 mEq/L (98-107); Glucose 91 mg/dL (70-105); Osmolality,Calculated 293 (280-300); Potassium 4.2 mEq/L (3.5-5.1); Sodium 140 mEq/L (136-145); eGFR For African Americans > 60 (> 60); eGFR For Non-African Americans > 60 (> 60)
[2021-01-09] MEDS: Budesonide/Formoterol 160/4.5 1 PUFF INH IH SCH ×2 (07:38→21:06)
[2021-01-09] MEDS: Tiotropium 10 INH DOSE IH SCH (07:39)
[2021-01-09] MEDS: amLODIPine 5 MG TABLET PO SCH (09:57)
[2021-01-09] MEDS: Aspirin Enteric Coated 81 MG Tablet PO SCH (09:57)
[2021-01-09] MEDS: Cyanocobalamin (B-12) 1,000 MCG TABLET PO SCH (09:57)
[2021-01-09] MEDS: Nystatin POWDER 30 GM BOTTLE TP SCH ×3 (09:58→21:30)
[2021-01-09] MEDS ORDERED: Ipratropium/Albuterol Neb 3 ML IH PRN (16:48)
[2021-01-09] MEDS: Divalproex (24 HR) 250 MG TABLET PO SCH (21:30)
[2021-01-09] MEDS: QUEtiapine Fumarate 25 MG TABLET PO SCH (21:30)
[2021-01-10] MEDS: *HR* Heparin 5,000 UNIT/ML VIAL SQ SCH ×3 (05:47→21:12)
[2021-01-10 06:46] LABS: Basophils % 0.6 %; Eosinophils # 0.4 K/mcL (0.0-0.6); Eosinophils % 6.5 %; Immature Granulocytes % 0.3 % (0-4); Lymphocytes # 1.8 K/mcL (0.6-4.6); Lymphocytes % 27.8 %; Mean Corpuscular HGB Conc 31.6 g/dL (31.6-35.5); Mean Corpuscular Hemoglobin 29.3 pg (28.0-33.3); Mean Corpuscular Volume 92.9 fL (83.0-100.0); Mean Platelet Volume 12.1 fL (9.4-12.4); Monocytes # 0.6 K/mcL (0.0-1.3); Monocytes % 9.1 %; Neutrophils # 3.7 K/mcL (1.6-8.9); Platelet Count 128 K/mcL (140-400); Red Blood Count 4.09 M/mcL (4.19-5.50); Red Cell Distribution Width 14.7 % (11.5-14.5); Segmented Neutrophils % 55.7 %; White Blood Count 6.6 K/mcL (4.3-11.1)
[2021-01-10 07:08] LABS: BUN/Creatinine Ratio 19 (6-26); Blood Urea Nitrogen 20 mg/dL (8-23); Carbon Dioxide 31 mEq/L (23-29); Chloride 106 mEq/L (98-107); Glucose 85 mg/dL (70-105); Osmolality,Calculated 294 (280-300); Potassium 4.1 mEq/L (3.5-5.1); Sodium 141 mEq/L (136-145); eGFR For African Americans > 60 (> 60); eGFR For Non-African Americans > 60 (> 60)
[2021-01-10 07:12] LABS: Thyroid Stimulating Hormone 1.437 mcIU/mL (0.340-5.600)
[2021-01-10] MEDS: Tiotropium 10 INH DOSE IH SCH (07:42)
[2021-01-10] MEDS: Budesonide/Formoterol 160/4.5 1 PUFF INH IH SCH ×2 (07:43→20:00)
[2021-01-10] MEDS ORDERED: Lactulose Oral Soln 20 GM/30 ML UDC PO ONE (07:53)
[2021-01-10] MEDS: Aspirin Enteric Coated 81 MG Tablet PO SCH (09:17)
[2021-01-10] MEDS: amLODIPine 5 MG TABLET PO SCH (09:19)
[2021-01-10] MEDS: Nystatin POWDER 30 GM BOTTLE TP SCH ×3 (09:20→21:12)
[2021-01-10] MEDS: Cyanocobalamin (B-12) 1,000 MCG TABLET PO SCH (09:28)
[2021-01-10] MEDS: QUEtiapine Fumarate 25 MG TABLET PO SCH (21:11)
[2021-01-10] MEDS: Divalproex (24 HR) 250 MG TABLET PO SCH (21:11)
[2021-01-11 01:52] LABS: Basophils % 0.5 %; Eosinophils # 0.3 K/mcL (0.0-0.6); Eosinophils % 4.1 %; Hematocrit 37.7 % (37.5-50.1); Hemoglobin 12.4 g/dL (12.9-16.9); Immature Granulocytes % 0.2 % (0-4); Lymphocytes % 23.6 %; Mean Corpuscular HGB Conc 32.9 g/dL (31.6-35.5); Mean Corpuscular Volume 91.1 fL (83.0-100.0); Mean Platelet Volume 12.1 fL (9.4-12.4); Monocytes # 0.8 K/mcL (0.0-1.3); Monocytes % 8.9 %; Neutrophils # 5.3 K/mcL (1.6-8.9); Platelet Count 125 K/mcL (140-400); Red Blood Count 4.14 M/mcL (4.19-5.50); Red Cell Distribution Width 14.7 % (11.5-14.5); Segmented Neutrophils % 62.7 %; White Blood Count 8.4 K/mcL (4.3-11.1)
[2021-01-11 02:05] LABS: BUN/Creatinine Ratio 19 (6-26); Blood Urea Nitrogen 18 mg/dL (8-23); Calcium 8.9 mg/dL (8.6-10.3); Carbon Dioxide 28 mEq/L (23-29); Chloride 106 mEq/L (98-107); Glucose 102 mg/dL (70-105); Osmolality,Calculated 290 (280-300); Potassium 4.5 mEq/L (3.5-5.1); Sodium 139 mEq/L (136-145); eGFR For African Americans > 60 (> 60); eGFR For Non-African Americans > 60 (> 60)
[2021-01-11] MEDS: *HR* Heparin 5,000 UNIT/ML VIAL SQ SCH ×3 (05:38→21:00)
[2021-01-11] MEDS: Tiotropium 10 INH DOSE IH SCH (07:46)
[2021-01-11] MEDS: Budesonide/Formoterol 160/4.5 1 PUFF INH IH SCH ×2 (07:46→20:10)
[2021-01-11] MEDS: Aspirin Enteric Coated 81 MG Tablet PO SCH (08:24)
[2021-01-11] MEDS: Cyanocobalamin (B-12) 1,000 MCG TABLET PO SCH (08:24)
[2021-01-11] MEDS: amLODIPine 5 MG TABLET PO SCH (08:25)
[2021-01-11] MEDS: Nystatin POWDER 30 GM BOTTLE TP SCH ×3 (08:25→22:11)
[2021-01-11] MEDS: Divalproex (24 HR) 250 MG TABLET PO SCH (20:56)
[2021-01-11] MEDS: QUEtiapine Fumarate 25 MG TABLET PO SCH (20:56)
[2021-01-12 02:45] LABS: Valproate Free <7 ug/mL (7-23); Valproate Total 20 ug/mL (50-125)
[2021-01-12 04:26] LABS: Basophils # 0.1 K/mcL (0.0-0.2); Basophils % 0.7 %; Eosinophils # 0.4 K/mcL (0.0-0.6); Eosinophils % 4.6 %; Hematocrit 38.9 % (37.5-50.1); Hemoglobin 12.6 g/dL (12.9-16.9); Immature Granulocytes % 0.3 % (0-4); Mean Corpuscular HGB Conc 32.4 g/dL (31.6-35.5); Mean Corpuscular Hemoglobin 29.6 pg (28.0-33.3); Mean Corpuscular Volume 91.5 fL (83.0-100.0); Monocytes # 0.8 K/mcL (0.0-1.3); Monocytes % 9.8 %; Neutrophils # 4.5 K/mcL (1.6-8.9); Platelet Count 123 K/mcL (140-400); Red Blood Count 4.25 M/mcL (4.19-5.50); Segmented Neutrophils % 58.6 %; White Blood Count 7.6 K/mcL (4.3-11.1)
[2021-01-12 04:46] LABS: BUN/Creatinine Ratio 25 (6-26); Blood Urea Nitrogen 24 mg/dL (8-23); Carbon Dioxide 30 mEq/L (23-29); Chloride 104 mEq/L (98-107); Glucose 94 mg/dL (70-105); Osmolality,Calculated 292 (280-300); Potassium 4.4 mEq/L (3.5-5.1); Sodium 139 mEq/L (136-145); eGFR For African Americans > 60 (> 60); eGFR For Non-African Americans > 60 (> 60)
[2021-01-12] MEDS: *HR* Heparin 5,000 UNIT/ML VIAL SQ SCH ×3 (06:20→22:18)
[2021-01-12] MEDS: Budesonide/Formoterol 160/4.5 1 PUFF INH IH SCH ×2 (07:43→20:15)
[2021-01-12] MEDS: Tiotropium 10 INH DOSE IH SCH (07:44)
[2021-01-12] MEDS: Cyanocobalamin (B-12) 1,000 MCG TABLET PO SCH (10:02)
[2021-01-12] MEDS: amLODIPine 5 MG TABLET PO SCH (10:02)
[2021-01-12] MEDS: Aspirin Enteric Coated 81 MG Tablet PO SCH (10:03)
[2021-01-12] MEDS: Nystatin POWDER 30 GM BOTTLE TP SCH ×3 (10:03→22:19)
[2021-01-12] MEDS: Divalproex (24 HR) 250 MG TABLET PO SCH (22:17)
[2021-01-12] MEDS: QUEtiapine Fumarate 25 MG TABLET PO SCH (22:17)
[2021-01-13 04:37] LABS: Basophils % 0.4 %; Eosinophils # 0.3 K/mcL (0.0-0.6); Hematocrit 39.6 % (37.5-50.1); Immature Granulocytes % 0.3 % (0-4); Lymphocytes # 1.8 K/mcL (0.6-4.6); Lymphocytes % 19.5 %; Mean Corpuscular HGB Conc 32.8 g/dL (31.6-35.5); Mean Corpuscular Hemoglobin 30.2 pg (28.0-33.3); Mean Corpuscular Volume 92.1 fL (83.0-100.0); Mean Platelet Volume 11.9 fL (9.4-12.4); Monocytes # 0.9 K/mcL (0.0-1.3); Monocytes % 9.7 %; Neutrophils # 6.3 K/mcL (1.6-8.9); Platelet Count 135 K/mcL (140-400); Red Cell Distribution Width 15.1 % (11.5-14.5); Segmented Neutrophils % 67.1 %; White Blood Count 9.4 K/mcL (4.3-11.1)
[2021-01-13 05:00] LABS: BUN/Creatinine Ratio 24 (6-26); Blood Urea Nitrogen 26 mg/dL (8-23); Calcium 9.3 mg/dL (8.6-10.3); Carbon Dioxide 27 mEq/L (23-29); Chloride 103 mEq/L (98-107); Glucose 114 mg/dL (70-105); Osmolality,Calculated 290 (280-300); Potassium 4.1 mEq/L (3.5-5.1); Sodium 137 mEq/L (136-145); eGFR For African Americans > 60 (> 60); eGFR For Non-African Americans > 60 (> 60)
[2021-01-13] MEDS: *HR* Heparin 5,000 UNIT/ML VIAL SQ SCH ×3 (08:27→21:00)
[2021-01-13 08:31] LABS: Bilirubin,Urine Negative (Negative); Blood,Urine Trace (Negative); Clarity,Urine Clear (Clear); Color,Urine Light-Yellow (Yellow); Glucose,Urine (UA) Normal (Normal); Ketones,Urine Negative (Negative); Leukocyte Esterase,Urine Small (Negative); Mucus,Urine Few per lpf (None-Few); Nitrite,Urine Negative (Negative); PH,Urine 5.5 pH Units (5.0-8.0); Protein,Urine Negative (Neg-Trace); RBC,Urine 0-3 per hpf (0-3); Specific Gravity,Urine 1.017 (1.010-1.025); Squamous Epithelial Cell,Urine Few per hpf (None-Few); Urobilinogen,Urine Normal (Normal)
[2021-01-13] MEDS: Cyanocobalamin (B-12) 1,000 MCG TABLET PO SCH (08:31)
[2021-01-13] MEDS: amLODIPine 5 MG TABLET PO SCH (08:31)
[2021-01-13] MEDS: Aspirin Enteric Coated 81 MG Tablet PO SCH (08:32)
[2021-01-13] MEDS: Nystatin POWDER 30 GM BOTTLE TP SCH ×3 (08:32→21:01)
[2021-01-13] MEDS: Tiotropium 10 INH DOSE IH SCH (10:29)
[2021-01-13] MEDS: Budesonide/Formoterol 160/4.5 1 PUFF INH IH SCH ×2 (10:31→20:06)
[2021-01-13] MEDS: Divalproex (24 HR) 250 MG TABLET PO SCH (21:01)
[2021-01-13] MEDS: QUEtiapine Fumarate 25 MG TABLET PO SCH (21:01)
[2021-01-14 03:08] LABS: Basophils % 0.4 %; Eosinophils # 0.2 K/mcL (0.0-0.6); Eosinophils % 2.7 %; Hemoglobin 13.2 g/dL (12.9-16.9); Immature Granulocytes % 0.4 % (0-4); Lymphocytes # 1.8 K/mcL (0.6-4.6); Lymphocytes % 21.3 %; Mean Corpuscular HGB Conc 32.2 g/dL (31.6-35.5); Mean Corpuscular Hemoglobin 29.9 pg (28.0-33.3); Mean Platelet Volume 12.2 fL (9.4-12.4); Monocytes # 0.9 K/mcL (0.0-1.3); Monocytes % 10.7 %; Neutrophils # 5.3 K/mcL (1.6-8.9); Platelet Count 144 K/mcL (140-400); Red Blood Count 4.41 M/mcL (4.19-5.50); Red Cell Distribution Width 14.7 % (11.5-14.5); Segmented Neutrophils % 64.5 %; White Blood Count 8.2 K/mcL (4.3-11.1)
[2021-01-14 03:32] LABS: BUN/Creatinine Ratio 26 (6-26); Blood Urea Nitrogen 27 mg/dL (8-23); Calcium 9.3 mg/dL (8.6-10.3); Carbon Dioxide 27 mEq/L (23-29); Chloride 103 mEq/L (98-107); Glucose 88 mg/dL (70-105); Osmolality,Calculated 291 (280-300); Potassium 4.2 mEq/L (3.5-5.1); Sodium 138 mEq/L (136-145); eGFR For African Americans > 60 (> 60); eGFR For Non-African Americans > 60 (> 60)
[2021-01-14] MEDS: *HR* Heparin 5,000 UNIT/ML VIAL SQ SCH ×3 (05:39→20:50)
[2021-01-14] MEDS ORDERED: Acetaminophen 325 MG TABLET PO PRN (06:05)
[2021-01-14] MEDS: Tiotropium 10 INH DOSE IH SCH (07:52)
[2021-01-14] MEDS: Budesonide/Formoterol 160/4.5 1 PUFF INH IH SCH ×2 (07:52→20:16)
[2021-01-14] MEDS: Aspirin Enteric Coated 81 MG Tablet PO SCH (08:47)
[2021-01-14] MEDS: Cyanocobalamin (B-12) 1,000 MCG TABLET PO SCH (08:47)
[2021-01-14] MEDS: Divalproex (24 HR) 250 MG TABLET PO SCH ×2 (08:48→20:50)
[2021-01-14] MEDS: Nystatin POWDER 30 GM BOTTLE TP SCH ×3 (08:48→20:50)
[2021-01-14] MEDS: amLODIPine 5 MG TABLET PO SCH (08:48)
[2021-01-14] MEDS: QUEtiapine Fumarate 25 MG TABLET PO SCH (20:50)
[2021-01-15] MEDS: *HR* Heparin 5,000 UNIT/ML VIAL SQ SCH ×3 (05:42→20:26)
[2021-01-15 05:48] LABS: Basophils % 0.5 %; Eosinophils # 0.3 K/mcL (0.0-0.6); Eosinophils % 3.3 %; Hematocrit 39.9 % (37.5-50.1); Immature Granulocytes % 0.3 % (0-4); Lymphocytes # 1.7 K/mcL (0.6-4.6); Lymphocytes % 21.7 %; Mean Corpuscular HGB Conc 32.6 g/dL (31.6-35.5); Mean Corpuscular Hemoglobin 29.7 pg (28.0-33.3); Mean Corpuscular Volume 91.1 fL (83.0-100.0); Mean Platelet Volume 12.1 fL (9.4-12.4); Monocytes # 0.9 K/mcL (0.0-1.3); Monocytes % 11.2 %; Platelet Count 144 K/mcL (140-400); Red Blood Count 4.38 M/mcL (4.19-5.50); Red Cell Distribution Width 14.7 % (11.5-14.5)
[2021-01-15 06:07] LABS: BUN/Creatinine Ratio 26 (6-26); Blood Urea Nitrogen 26 mg/dL (8-23); Calcium 9.2 mg/dL (8.6-10.3); Carbon Dioxide 28 mEq/L (23-29); Chloride 104 mEq/L (98-107); Glucose 90 mg/dL (70-105); Magnesium 2.1 mg/dL (1.6-2.6); Osmolality,Calculated 294 (280-300); Potassium 3.9 mEq/L (3.5-5.1); Sodium 140 mEq/L (136-145); eGFR For African Americans > 60 (> 60); eGFR For Non-African Americans > 60 (> 60)
[2021-01-15] MEDS: Budesonide/Formoterol 160/4.5 1 PUFF INH IH SCH ×2 (07:20→21:46)
[2021-01-15] MEDS: Tiotropium 10 INH DOSE IH SCH (07:20)
[2021-01-15] MEDS: Cyanocobalamin (B-12) 1,000 MCG TABLET PO SCH (09:08)
[2021-01-15] MEDS: Aspirin Enteric Coated 81 MG Tablet PO SCH (09:08)
[2021-01-15] MEDS: amLODIPine 5 MG TABLET PO SCH (09:09)
[2021-01-15] MEDS: Divalproex (24 HR) 250 MG TABLET PO SCH ×2 (09:09→20:26)
[2021-01-15] MEDS: Nystatin POWDER 30 GM BOTTLE TP SCH ×3 (09:09→20:26)
[2021-01-15] MEDS: QUEtiapine Fumarate 25 MG TABLET PO SCH (20:26)
[2021-01-16] MEDS: *HR* Heparin 5,000 UNIT/ML VIAL SQ SCH ×3 (05:10→21:55)
[2021-01-16] MEDS: Tiotropium 10 INH DOSE IH SCH (07:46)
[2021-01-16] MEDS: Budesonide/Formoterol 160/4.5 1 PUFF INH IH SCH ×2 (07:46→19:47)
[2021-01-16] MEDS: Nystatin POWDER 30 GM BOTTLE TP SCH ×3 (09:30→22:22)
[2021-01-16] MEDS: Divalproex (24 HR) 250 MG TABLET PO SCH ×2 (09:44→21:55)
[2021-01-16] MEDS: amLODIPine 5 MG TABLET PO SCH (09:44)
[2021-01-16] MEDS: Cyanocobalamin (B-12) 1,000 MCG TABLET PO SCH (09:44)
[2021-01-16] MEDS: Aspirin Enteric Coated 81 MG Tablet PO SCH (09:44)
[2021-01-16] MEDS: QUEtiapine Fumarate 25 MG TABLET PO SCH (21:55)
[2021-01-17] MEDS: *HR* Heparin 5,000 UNIT/ML VIAL SQ SCH ×3 (05:32→20:07)
[2021-01-17] MEDS: Budesonide/Formoterol 160/4.5 1 PUFF INH IH SCH ×2 (07:38→22:32)
[2021-01-17] MEDS: Tiotropium 10 INH DOSE IH SCH (07:39)
[2021-01-17] MEDS: Divalproex (24 HR) 250 MG TABLET PO SCH ×2 (10:23→20:13)
[2021-01-17] MEDS: Aspirin Enteric Coated 81 MG Tablet PO SCH (10:23)
[2021-01-17] MEDS: amLODIPine 5 MG TABLET PO SCH (10:24)
[2021-01-17] MEDS: Nystatin POWDER 30 GM BOTTLE TP SCH ×3 (10:24→20:13)
[2021-01-17] MEDS: Cyanocobalamin (B-12) 1,000 MCG TABLET PO SCH (10:24)
[2021-01-17] MEDS: QUEtiapine Fumarate 25 MG TABLET PO SCH (20:13)
[2021-01-18] MEDS: *HR* Heparin 5,000 UNIT/ML VIAL SQ SCH (05:06)
[2021-01-18 07:35] VITALS: BP 139/73
[2021-01-18] MEDS: Tiotropium 10 INH DOSE IH SCH (07:44)
[2021-01-18] MEDS: Budesonide/Formoterol 160/4.5 1 PUFF INH IH SCH (07:44)
[2021-01-18] MEDS: Aspirin Enteric Coated 81 MG Tablet PO SCH (09:33)
[2021-01-18] MEDS: Divalproex (24 HR) 250 MG TABLET PO SCH (09:33)
[2021-01-18] MEDS: Cyanocobalamin (B-12) 1,000 MCG TABLET PO SCH (09:33)
[2021-01-18] MEDS: amLODIPine 5 MG TABLET PO SCH (09:33)
[2021-01-18] MEDS: Nystatin POWDER 30 GM BOTTLE TP SCH (09:34)
== END 2021-01-18 15:30 | disposition home health service (06) | DRG 56 ==
LOC: EMEROOARM 12:56 → 3ANU 12:56 → SUATTDRO 15:15 → 3ANU 16:42 → SUATTDRO 01-09 15:41 → 3ANU 01-11 14:22
PROVIDERS: ADMIT Internal Medicine; ATTEND Internal Medicine

== ENCOUNTER 2021-02-09 20:33 | Inpatient (IN) ==
[2021-02-09 20:59] LABS: Basophils # 0.1 K/mcL (0.0-0.2); Basophils % 0.8 %; Eosinophils # 0.3 K/mcL (0.0-0.6); Eosinophils % 4.4 %; Hematocrit 39.8 % (37.5-50.1); Hemoglobin 12.6 g/dL (12.9-16.9); Immature Granulocytes % 0.2 % (0-4); Lymphocytes # 1.6 K/mcL (0.6-4.6); Mean Corpuscular HGB Conc 31.7 g/dL (31.6-35.5); Mean Corpuscular Hemoglobin 29.2 pg (28.0-33.3); Mean Corpuscular Volume 92.3 fL (83.0-100.0); Mean Platelet Volume 11.6 fL (9.4-12.4); Monocytes # 0.8 K/mcL (0.0-1.3); Monocytes % 11.5 %; Neutrophils # 3.9 K/mcL (1.6-8.9); Platelet Count 133 K/mcL (140-400); Red Blood Count 4.31 M/mcL (4.19-5.50); Red Cell Distribution Width 14.5 % (11.5-14.5); Segmented Neutrophils % 59.1 %; White Blood Count 6.6 K/mcL (4.3-11.1)
[2021-02-09 21:01] LABS: Immature Platelets 7.1 % (1.1-6.1)
[2021-02-09 21:20] LABS: BUN/Creatinine Ratio 19 (6-26); Blood Urea Nitrogen 22 mg/dL (8-23); Calcium 9.1 mg/dL (8.6-10.3); Carbon Dioxide 29 mEq/L (23-29); Chloride 106 mEq/L (98-107); Glucose 127 mg/dL (70-105); Osmolality,Calculated 295 (280-300); Potassium 4.1 mEq/L (3.5-5.1); Sodium 140 mEq/L (136-145); Troponin I < 0.03 ng/mL (< 0.04); eGFR For African Americans > 60 (> 60); eGFR For Non-African Americans > 60 (> 60)
[2021-02-09 22:16] LABS: ABG Base Excess 4 mEq/L (-2 to 3); ABG HCO3 29 mEq/L (21-27); ABG Oxygen Saturation 94 % (95-98); ABG PCO2 45 mmHg (35-45); ABG PH 7.42 pH Units (7.32-7.45); ABG PO2 69 mmHg (85-104); ABG TCO2 30 mEq/L (20-26); Blood Gas Modality 4L
[2021-02-09] MEDS ORDERED: *HR* Enoxaparin 100 MG/ML SYRINGE SQ STA (22:46)
[2021-02-10 00:21] LABS: Adenovirus Not Detected (Not Detect); Coronavirus 229E Not Detected (Not Detect); Coronavirus HKU1 Not Detected (Not Detect); Coronavirus NL63 Not Detected (Not Detect); Coronavirus OC43 Not Detected (Not Detect)
[2021-02-10 00:22] LABS: Bordetella Pertussis Not Detected (Not Detect); Chlamydophila pneumoniae Not Detected (Not Detect); Human Metapneumovirus Not Detected (Not Detect); Human Rhinovirus/Enterovirus Not Detected (Not Detect); Influenza A Subtype 2009 H1 Not Detected (Not Detect); Influenza B Not Detected (Not Detect); Mycoplasma pneumoniae Not Detected (Not Detect); Parainfluenza Virus 1 Not Detected (Not Detect); Parainfluenza Virus 2 Not Detected (Not Detect); Parainfluenza Virus 3 Not Detected (Not Detect); Parainfluenza Virus 4 Not Detected (Not Detect); Respiratory Syncytial Virus Not Detected (Not Detect)
[2021-02-10 00:28] LABS: SARS-CoV-2 DETECTED (Not Detect)
[2021-02-10] MEDS ORDERED: Naloxone 0.4 MG/ML INJ IVP PRN (01:09)
[2021-02-10] MEDS ORDERED: Acetaminophen 325 MG TABLET PO PRN (01:09)
[2021-02-10] MEDS ORDERED: Ondansetron 4 MG/2 ML VIAL IVP PRN (01:09)
[2021-02-10] MEDS ORDERED: Ipratropium/Albuterol Neb 3 ML IH PRN (02:06)
[2021-02-10 03:12] LABS: Basophils % 0.5 %; Eosinophils # 0.2 K/mcL (0.0-0.6); Eosinophils % 4.2 %; Hematocrit 39.4 % (37.5-50.1); Hemoglobin 12.6 g/dL (12.9-16.9); Immature Granulocytes % 0.3 % (0-4); Lymphocytes % 16.5 %; Mean Corpuscular Hemoglobin 29.9 pg (28.0-33.3); Mean Corpuscular Volume 93.4 fL (83.0-100.0); Monocytes # 0.6 K/mcL (0.0-1.3); Monocytes % 10.7 %; Neutrophils # 3.9 K/mcL (1.6-8.9); Platelet Count 122 K/mcL (140-400); Red Blood Count 4.22 M/mcL (4.19-5.50); Red Cell Distribution Width 14.6 % (11.5-14.5); Segmented Neutrophils % 67.8 %; White Blood Count 5.8 K/mcL (4.3-11.1)
[2021-02-10 03:18] LABS: INR 1.1; Prothrombin Time 12.7 Seconds (9.4-12.1)
[2021-02-10 03:29] LABS: Alanine Aminotransferase 7 Units/L (7-52); Albumin 3.4 g/dL (3.5-5.7); Albumin/Globulin Ratio 1.4 (1.1-2.2); Alkaline Phosphatase 75 Units/L (34-104); Aspartate Amino Transferase 12 Units/L (13-39); BUN/Creatinine Ratio 20 (6-26); Bilirubin,Total 0.3 mg/dL (0.3-1.0); Blood Urea Nitrogen 19 mg/dL (8-23); C-Reactive Protein < 5 mg/L (Less than 10); Calcium 8.8 mg/dL (8.6-10.3); Carbon Dioxide 26 mEq/L (23-29); Chloride 109 mEq/L (98-107); Globulin 2.4 g/dL (2.4-3.5); Glucose 98 mg/dL (70-105); Lactate Dehydrogenase 128 Units/L (140-271); Magnesium 1.9 mg/dL (1.6-2.6); Osmolality,Calculated 294 (280-300); Potassium 4.1 mEq/L (3.5-5.1); Sodium 141 mEq/L (136-145); Total Protein 5.8 g/dL (6.4-8.9); eGFR For African Americans > 60 (> 60); eGFR For Non-African Americans > 60 (> 60)
[2021-02-10 03:47] LABS: Ferritin 134 ng/mL (20-250)
[2021-02-10] MEDS: Ipratropium 1 PUFF INHALER IH SCH ×2 (20:24→23:34)
[2021-02-10] MEDS: Divalproex (24 HR) 250 MG TABLET PO SCH (20:56)
[2021-02-10] MEDS: QUEtiapine Fumarate 25 MG TABLET PO SCH (20:56)
[2021-02-11] MEDS: Ipratropium 1 PUFF INHALER IH SCH ×6 (04:02→23:44)
[2021-02-11 06:55] LABS: Basophils % 0.3 %; Eosinophils % 0.5 %; Immature Granulocytes % 0.2 % (0-4); Lymphocytes # 1.1 K/mcL (0.6-4.6); Lymphocytes % 18.2 %; Mean Corpuscular HGB Conc 31.7 g/dL (31.6-35.5); Mean Corpuscular Hemoglobin 29.5 pg (28.0-33.3); Mean Platelet Volume 12.3 fL (9.4-12.4); Monocytes # 0.9 K/mcL (0.0-1.3); Monocytes % 14.1 %; Neutrophils # 4.1 K/mcL (1.6-8.9); Platelet Count 113 K/mcL (140-400); Red Blood Count 4.41 M/mcL (4.19-5.50); Segmented Neutrophils % 66.7 %; White Blood Count 6.2 K/mcL (4.3-11.1)
[2021-02-11 07:04] LABS: Fibrinogen 370 mg/dL (169-393)
[2021-02-11 07:09] LABS: D-Dimer 1582 ng/mLFEU (0-500)
[2021-02-11 07:15] LABS: BUN/Creatinine Ratio 15 (6-26); Blood Urea Nitrogen 15 mg/dL (8-23); Calcium 8.8 mg/dL (8.6-10.3); Carbon Dioxide 27 mEq/L (23-29); Chloride 106 mEq/L (98-107); Glucose 100 mg/dL (70-105); Magnesium 1.9 mg/dL (1.6-2.6); Osmolality,Calculated 289 (280-300); Potassium 4.3 mEq/L (3.5-5.1); Sodium 139 mEq/L (136-145); eGFR For African Americans > 60 (> 60); eGFR For Non-African Americans > 60 (> 60)
[2021-02-11] MEDS: *HR* Enoxaparin 40 MG/0.4 ML SYRINGE SQ SCH (07:25)
[2021-02-11] MEDS: Divalproex (24 HR) 250 MG TABLET PO SCH ×3 (10:44→19:41)
[2021-02-11] MEDS: Loratadine 10 MG TABLET PO SCH ×2 (10:44→15:07)
[2021-02-11] MEDS: Aspirin Enteric Coated 81 MG Tablet PO SCH ×2 (10:44→15:07)
[2021-02-11] MEDS: amLODIPine 5 MG TABLET PO SCH ×2 (10:44→15:07)
[2021-02-11] MEDS: Cyanocobalamin (B-12) 1,000 MCG TABLET PO SCH ×2 (10:45→15:07)
[2021-02-11] MEDS: Furosemide 40 MG/4 ML VIAL IVP SCH (19:41)
[2021-02-11] MEDS: QUEtiapine Fumarate 25 MG TABLET PO SCH (19:41)
[2021-02-12] MEDS: Ipratropium 1 PUFF INHALER IH SCH ×6 (03:36→23:12)
[2021-02-12] MEDS: *HR* Enoxaparin 40 MG/0.4 ML SYRINGE SQ SCH (04:02)
[2021-02-12 08:08] LABS: Basophils % 0.5 %; Eosinophils % 0.6 %; Hematocrit 44.2 % (37.5-50.1); Hemoglobin 13.9 g/dL (12.9-16.9); Immature Granulocytes % 0.2 % (0-4); Lymphocytes # 1.8 K/mcL (0.6-4.6); Lymphocytes % 27.8 %; Mean Corpuscular HGB Conc 31.4 g/dL (31.6-35.5); Mean Corpuscular Volume 92.3 fL (83.0-100.0); Mean Platelet Volume 12.3 fL (9.4-12.4); Monocytes % 15.8 %; Neutrophils # 3.5 K/mcL (1.6-8.9); Platelet Count 115 K/mcL (140-400); Red Blood Count 4.79 M/mcL (4.19-5.50); Red Cell Distribution Width 14.6 % (11.5-14.5); Segmented Neutrophils % 55.1 %; White Blood Count 6.4 K/mcL (4.3-11.1)
[2021-02-12 08:14] LABS: Fibrinogen 388 mg/dL (169-393)
[2021-02-12 08:29] LABS: BUN/Creatinine Ratio 20 (6-26); Blood Urea Nitrogen 24 mg/dL (8-23); Calcium 9.1 mg/dL (8.6-10.3); Carbon Dioxide 27 mEq/L (23-29); Chloride 100 mEq/L (98-107); Glucose 96 mg/dL (70-105); Magnesium 1.9 mg/dL (1.6-2.6); Osmolality,Calculated 292 (280-300); Potassium 4.2 mEq/L (3.5-5.1); Sodium 139 mEq/L (136-145); eGFR For African Americans > 60 (> 60); eGFR For Non-African Americans 59 (> 60)
[2021-02-12 08:35] LABS: D-Dimer 1344 ng/mLFEU (0-500)
[2021-02-12] MEDS: Loratadine 10 MG TABLET PO SCH (08:47)
[2021-02-12] MEDS: Cyanocobalamin (B-12) 1,000 MCG TABLET PO SCH (08:47)
[2021-02-12] MEDS: amLODIPine 5 MG TABLET PO SCH (08:47)
[2021-02-12] MEDS: Aspirin Enteric Coated 81 MG Tablet PO SCH (08:47)
[2021-02-12] MEDS: Divalproex (24 HR) 250 MG TABLET PO SCH ×2 (08:47→19:33)
[2021-02-12] MEDS: Furosemide 40 MG/4 ML VIAL IVP SCH (08:48)
[2021-02-12] MEDS: Dexamethasone 4 MG/ML VIAL IVP SCH (08:49)
[2021-02-12] MEDS: QUEtiapine Fumarate 25 MG TABLET PO SCH (19:33)
[2021-02-13] MEDS: Ipratropium 1 PUFF INHALER IH SCH ×6 (04:05→23:49)
[2021-02-13] MEDS: *HR* Enoxaparin 40 MG/0.4 ML SYRINGE SQ SCH (04:48)
[2021-02-13 07:16] LABS: Hematocrit 43.6 % (37.5-50.1); Hemoglobin 14.4 g/dL (12.9-16.9); Immature Granulocytes % 0.2 % (0-4); Lymphocytes # 0.7 K/mcL (0.6-4.6); Lymphocytes % 15.3 %; Mean Corpuscular Hemoglobin 29.4 pg (28.0-33.3); Mean Platelet Volume 12.3 fL (9.4-12.4); Monocytes # 0.6 K/mcL (0.0-1.3); Neutrophils # 3.5 K/mcL (1.6-8.9); Platelet Count 120 K/mcL (140-400); Red Cell Distribution Width 13.8 % (11.5-14.5); Segmented Neutrophils % 72.5 %; White Blood Count 4.9 K/mcL (4.3-11.1)
[2021-02-13 07:35] LABS: Calcium 9.2 mg/dL (8.6-10.3); Magnesium 2.1 mg/dL (1.6-2.6); Potassium 4.1 mEq/L (3.5-5.1)
[2021-02-13] MEDS: Divalproex (24 HR) 250 MG TABLET PO SCH ×2 (08:05→20:49)
[2021-02-13] MEDS: Dexamethasone 4 MG/ML VIAL IVP SCH (08:05)
[2021-02-13] MEDS: Loratadine 10 MG TABLET PO SCH (08:05)
[2021-02-13] MEDS: Aspirin Enteric Coated 81 MG Tablet PO SCH (08:05)
[2021-02-13] MEDS: amLODIPine 5 MG TABLET PO SCH (08:05)
[2021-02-13] MEDS: Cyanocobalamin (B-12) 1,000 MCG TABLET PO SCH (08:05)
[2021-02-13] MEDS: Furosemide 40 MG/4 ML VIAL IVP SCH (08:06)
[2021-02-13] MEDS: QUEtiapine Fumarate 25 MG TABLET PO SCH (20:49)
[2021-02-14 02:31] LABS: BUN/Creatinine Ratio 32 (6-26); Blood Urea Nitrogen 43 mg/dL (8-23); Calcium 8.7 mg/dL (8.6-10.3); Carbon Dioxide 32 mEq/L (23-29); Chloride 96 mEq/L (98-107); Glucose 150 mg/dL (70-105); Osmolality,Calculated 296 (280-300); Potassium 3.7 mEq/L (3.5-5.1); Sodium 136 mEq/L (136-145); eGFR For African Americans > 60 (> 60); eGFR For Non-African Americans 50 (> 60)
[2021-02-14] MEDS: Ipratropium 1 PUFF INHALER IH SCH ×6 (03:36→23:46)
[2021-02-14] MEDS: *HR* Enoxaparin 40 MG/0.4 ML SYRINGE SQ SCH (06:06)
[2021-02-14] MEDS: Dexamethasone 4 MG/ML VIAL IVP SCH (09:36)
[2021-02-14] MEDS: Loratadine 10 MG TABLET PO SCH (09:37)
[2021-02-14] MEDS: Cyanocobalamin (B-12) 1,000 MCG TABLET PO SCH (09:37)
[2021-02-14] MEDS: amLODIPine 5 MG TABLET PO SCH (09:37)
[2021-02-14] MEDS: Divalproex (24 HR) 250 MG TABLET PO SCH ×2 (09:37→21:15)
[2021-02-14] MEDS: Aspirin Enteric Coated 81 MG Tablet PO SCH (09:37)
[2021-02-14] MEDS: QUEtiapine Fumarate 25 MG TABLET PO SCH (21:15)
[2021-02-15 01:20] LABS: BUN/Creatinine Ratio 39 (6-26); Blood Urea Nitrogen 44 mg/dL (8-23); Calcium 8.6 mg/dL (8.6-10.3); Carbon Dioxide 30 mEq/L (23-29); Chloride 96 mEq/L (98-107); Glucose 121 mg/dL (70-105); Osmolality,Calculated 290 (280-300); Potassium 3.9 mEq/L (3.5-5.1); Sodium 134 mEq/L (136-145); eGFR For African Americans > 60 (> 60); eGFR For Non-African Americans > 60 (> 60)
[2021-02-15] MEDS: Ipratropium 1 PUFF INHALER IH SCH ×3 (04:14→11:30)
[2021-02-15] MEDS: *HR* Enoxaparin 40 MG/0.4 ML SYRINGE SQ SCH (06:02)
[2021-02-15] MEDS: amLODIPine 5 MG TABLET PO SCH (08:13)
[2021-02-15] MEDS: Aspirin Enteric Coated 81 MG Tablet PO SCH (08:13)
[2021-02-15] MEDS: Loratadine 10 MG TABLET PO SCH (08:14)
[2021-02-15] MEDS: Divalproex (24 HR) 250 MG TABLET PO SCH (08:14)
[2021-02-15] MEDS: Cyanocobalamin (B-12) 1,000 MCG TABLET PO SCH (08:14)
[2021-02-15] MEDS: Dexamethasone 4 MG/ML VIAL IVP SCH (09:13)
[2021-02-15 10:34] VITALS: BP 125/83
[2021-02-17 02:12] LABS: ABG Base Excess 6 mEq/L (-2 to 3); ABG HCO3 31 mEq/L (21-27); ABG Oxygen Saturation 93 % (95-98); ABG PCO2 45 mmHg (35-45); ABG PH 7.44 pH Units (7.32-7.45); ABG PO2 65 mmHg (85-104); ABG TCO2 32 mEq/L (20-26)
== END 2021-02-15 11:20 | DRG 177 ==
LOC: EMEROOARM 20:33 → 3BNU 20:33 → SUATTDRO 02-10 00:30 → 3BNU 02-10 00:49 → SUATTDRO 02-12 17:52
PROVIDERS: ADMIT Student in an Organized Health Care Education/Training Program; ATTEND Internal Medicine

== ENCOUNTER 2021-02-16 22:50 | Inpatient (IN) ==
[2021-02-17 00:13] LABS: Basophils % 0.2 %; Hematocrit 42.2 % (37.5-50.1); Hemoglobin 13.6 g/dL (12.9-16.9); Immature Platelets 13.3 % (1.1-6.1); Lymphocytes # 0.6 K/mcL (0.6-4.6); Lymphocytes % 9.6 %; Mean Corpuscular HGB Conc 32.2 g/dL (31.6-35.5); Mean Corpuscular Hemoglobin 28.6 pg (28.0-33.3); Mean Corpuscular Volume 88.7 fL (83.0-100.0); Mean Platelet Volume 13.2 fL (9.4-12.4); Monocytes # 0.6 K/mcL (0.0-1.3); Monocytes % 9.4 %; Red Blood Count 4.76 M/mcL (4.19-5.50); Red Cell Distribution Width 14.1 % (11.5-14.5); Segmented Neutrophils % 79.8 %; White Blood Count 5.8 K/mcL (4.3-11.1)
[2021-02-17 00:16] LABS: Prothrombin Time 11.2 Seconds (9.4-12.1)
[2021-02-17 00:18] LABS: Activated Partial Thrombo Time 26.6 Seconds (26.0-36.0)
[2021-02-17 00:28] LABS: Neutrophils # 4.6 K/mcL (1.6-8.9); Platelet Count 92 K/mcL (140-400)
[2021-02-17 00:29] LABS: Platelet Estimate Slight Decrease (Normal)
[2021-02-17 00:30] LABS: Alanine Aminotransferase 9 Units/L (7-52); Albumin 3.6 g/dL (3.5-5.7); Albumin/Globulin Ratio 1.3 (1.1-2.2); Alkaline Phosphatase 66 Units/L (34-104); Aspartate Amino Transferase 14 Units/L (13-39); BUN/Creatinine Ratio 36 (6-26); Bilirubin,Direct 0.1 mg/dL (0.0-0.2); Bilirubin,Indirect 0.3 mg/dL (0.0-1.0); Bilirubin,Total 0.4 mg/dL (0.3-1.0); Blood Urea Nitrogen 39 mg/dL (8-23); C-Reactive Protein 24 mg/L (Less than 10); Calcium 9.1 mg/dL (8.6-10.3); Carbon Dioxide 31 mEq/L (23-29); Chloride 98 mEq/L (98-107); Globulin 2.8 g/dL (2.4-3.5); Glucose 153 mg/dL (70-105); Lactate Dehydrogenase 156 Units/L (140-271); Magnesium 2.3 mg/dL (1.6-2.6); Osmolality,Calculated 298 (280-300); Phosphorous 2.7 mg/dL (2.7-4.5); Sodium 138 mEq/L (136-145); Total Protein 6.4 g/dL (6.4-8.9); Troponin I < 0.03 ng/mL (< 0.04); eGFR For African Americans > 60 (> 60); eGFR For Non-African Americans > 60 (> 60)
[2021-02-17 00:48] LABS: Ferritin 542 ng/mL (20-250)
[2021-02-17] MEDS ORDERED: Naloxone 0.4 MG/ML INJ IVP PRN (03:13)
[2021-02-17] MEDS ORDERED: Ondansetron 4 MG/2 ML VIAL IVP PRN (03:13)
[2021-02-17] MEDS: *HR* Enoxaparin 40 MG/0.4 ML SYRINGE SQ SCH (05:53)
[2021-02-17 07:28] LABS: Hemoglobin 13.2 g/dL (12.9-16.9); Mean Corpuscular Volume 88.3 fL (83.0-100.0); Red Cell Distribution Width 14.1 % (11.5-14.5)
[2021-02-17 07:30] LABS: Hematocrit 40.1 % (37.5-50.1); Immature Platelets 15.1 % (1.1-6.1); Mean Corpuscular HGB Conc 32.9 g/dL (31.6-35.5); Mean Corpuscular Hemoglobin 29.1 pg (28.0-33.3); Mean Platelet Volume 13.1 fL (9.4-12.4); Red Blood Count 4.54 M/mcL (4.19-5.50); White Blood Count 6.3 K/mcL (4.3-11.1)
[2021-02-17 07:47] LABS: BUN/Creatinine Ratio 35 (6-26); Blood Urea Nitrogen 34 mg/dL (8-23); Carbon Dioxide 31 mEq/L (23-29); Chloride 99 mEq/L (98-107); Glucose 115 mg/dL (70-105); Magnesium 2.2 mg/dL (1.6-2.6); Osmolality,Calculated 291 (280-300); Sodium 136 mEq/L (136-145); eGFR For African Americans > 60 (> 60); eGFR For Non-African Americans > 60 (> 60)
[2021-02-17] MEDS: dexAMETHasone 4 MG TABLET PO SCH (10:21)
[2021-02-17] MEDS: Tiotropium 10 INH DOSE IH SCH (11:02)
[2021-02-17] MEDS: Melatonin 3 MG TABLET PO PRN (21:36)
[2021-02-18] MEDS: *HR* Enoxaparin 40 MG/0.4 ML SYRINGE SQ SCH (05:06)
[2021-02-18] MEDS: Tiotropium 10 INH DOSE IH SCH (08:29)
[2021-02-18] MEDS: dexAMETHasone 4 MG TABLET PO SCH (10:09)
[2021-02-18] MEDS: Dexamethasone Sodium Phos/PF 10 MG/ML VIAL IVP SCH (14:28)
[2021-02-18] MEDS: cefTRIAXone 1,000 MG in Water for inj. (sterile) 10 ML IVP SCH (14:28)
[2021-02-18] MEDS: QUEtiapine Fumarate 25 MG TABLET PO SCH (21:54)
[2021-02-18] MEDS: Divalproex (24 HR) 250 MG TABLET PO SCH (21:54)
[2021-02-18] MEDS: Melatonin 3 MG TABLET PO PRN (21:54)
[2021-02-19 03:22] LABS: Hematocrit 39.7 % (37.5-50.1); Hemoglobin 13.1 g/dL (12.9-16.9); Mean Corpuscular Hemoglobin 28.8 pg (28.0-33.3); Mean Corpuscular Volume 87.3 fL (83.0-100.0); Mean Platelet Volume 12.1 fL (9.4-12.4); Platelet Count 110 K/mcL (140-400); Red Blood Count 4.55 M/mcL (4.19-5.50); Red Cell Distribution Width 13.8 % (11.5-14.5); White Blood Count 6.9 K/mcL (4.3-11.1)
[2021-02-19 03:39] LABS: BUN/Creatinine Ratio 37 (6-26); Blood Urea Nitrogen 34 mg/dL (8-23); Calcium 8.9 mg/dL (8.6-10.3); Carbon Dioxide 33 mEq/L (23-29); Chloride 97 mEq/L (98-107); Glucose 157 mg/dL (70-105); Osmolality,Calculated 291 (280-300); Potassium 4.3 mEq/L (3.5-5.1); Sodium 135 mEq/L (136-145); eGFR For African Americans > 60 (> 60); eGFR For Non-African Americans > 60 (> 60)
[2021-02-19] MEDS: *HR* Enoxaparin 40 MG/0.4 ML SYRINGE SQ SCH (05:50)
[2021-02-19] MEDS: Tiotropium 10 INH DOSE IH SCH (08:09)
[2021-02-19] MEDS: Dexamethasone Sodium Phos/PF 10 MG/ML VIAL IVP SCH (08:25)
[2021-02-19] MEDS: Aspirin Enteric Coated 81 MG Tablet PO SCH (08:27)
[2021-02-19] MEDS: Divalproex (24 HR) 250 MG TABLET PO SCH ×2 (08:28→20:34)
[2021-02-19] MEDS: cefTRIAXone 1,000 MG in Water for inj. (sterile) 10 ML IVP SCH (13:25)
[2021-02-19] MEDS: QUEtiapine Fumarate 25 MG TABLET PO SCH (20:34)
[2021-02-20 05:06] LABS: Bilirubin,Urine Negative (Negative); Blood,Urine Moderate (Negative); Clarity,Urine Clear (Clear); Color,Urine Light-Yellow (Yellow); Glucose,Urine (UA) Normal (Normal); Ketones,Urine Negative (Negative); Leukocyte Esterase,Urine Small (Negative); Nitrite,Urine Negative (Negative); PH,Urine 6.5 pH Units (5.0-8.0); Protein,Urine Trace mg/dL (Neg-Trace); RBC,Urine 15-30 per hpf (0-3); Squamous Epithelial Cell,Urine Few per hpf (None-Few); Urobilinogen,Urine Normal (Normal)
[2021-02-20] MEDS: *HR* Enoxaparin 40 MG/0.4 ML SYRINGE SQ SCH (06:14)
[2021-02-20] MEDS: Tiotropium 10 INH DOSE IH SCH (07:25)
[2021-02-20] MEDS: Divalproex (24 HR) 250 MG TABLET PO SCH ×2 (07:48→21:15)
[2021-02-20] MEDS: Dexamethasone Sodium Phos/PF 10 MG/ML VIAL IVP SCH (07:48)
[2021-02-20] MEDS: Aspirin Enteric Coated 81 MG Tablet PO SCH (07:49)
[2021-02-20] MEDS: Cyanocobalamin (B-12) 1,000 MCG TABLET PO SCH (08:29)
[2021-02-20] MEDS: Acetaminophen 325 MG TABLET PO PRN ×2 (08:29→21:14)
[2021-02-20] MEDS: Ipratropium 1 PUFF INHALER IH SCH ×4 (14:11→23:14)
[2021-02-20] MEDS: cefTRIAXone 1,000 MG in Water for inj. (sterile) 10 ML IVP SCH (15:29)
[2021-02-20] MEDS: QUEtiapine Fumarate 25 MG TABLET PO SCH (21:15)
[2021-02-20] MEDS: Melatonin 3 MG TABLET PO PRN (21:15)
[2021-02-21] MEDS: Ipratropium 1 PUFF INHALER IH SCH ×6 (03:32→23:37)
[2021-02-21] MEDS: *HR* Enoxaparin 40 MG/0.4 ML SYRINGE SQ SCH (04:54)
[2021-02-21 05:51] LABS: Basophils % 0.4 %; Hematocrit 41.9 % (37.5-50.1); Hemoglobin 13.5 g/dL (12.9-16.9); Immature Granulocytes % 1.2 % (0-4); Lymphocytes # 0.7 K/mcL (0.6-4.6); Lymphocytes % 14.9 %; Mean Corpuscular HGB Conc 32.2 g/dL (31.6-35.5); Mean Corpuscular Volume 90.1 fL (83.0-100.0); Monocytes # 0.4 K/mcL (0.0-1.3); Monocytes % 8.8 %; Neutrophils # 3.7 K/mcL (1.6-8.9); Platelet Count 140 K/mcL (140-400); Red Blood Count 4.65 M/mcL (4.19-5.50); Red Cell Distribution Width 14.3 % (11.5-14.5); Segmented Neutrophils % 74.7 %; White Blood Count 4.9 K/mcL (4.3-11.1)
[2021-02-21 06:15] LABS: Platelet Estimate Normal (Normal); Reactive Lymphocytes Present (Not Present)
[2021-02-21 06:20] LABS: Alanine Aminotransferase 13 Units/L (7-52); Albumin 3.1 g/dL (3.5-5.7); Albumin/Globulin Ratio 1.1 (1.1-2.2); Alkaline Phosphatase 54 Units/L (34-104); Aspartate Amino Transferase 14 Units/L (13-39); BUN/Creatinine Ratio 36 (6-26); Bilirubin,Total 0.4 mg/dL (0.3-1.0); Blood Urea Nitrogen 31 mg/dL (8-23); Calcium 9.2 mg/dL (8.6-10.3); Carbon Dioxide 36 mEq/L (23-29); Chloride 99 mEq/L (98-107); Globulin 2.7 g/dL (2.4-3.5); Glucose 117 mg/dL (70-105); Lactate Dehydrogenase 202 Units/L (140-271); Osmolality,Calculated 298 (280-300); Potassium 4.3 mEq/L (3.5-5.1); Sodium 140 mEq/L (136-145); Total Protein 5.8 g/dL (6.4-8.9); eGFR For African Americans > 60 (> 60); eGFR For Non-African Americans > 60 (> 60)
[2021-02-21 06:32] LABS: Ferritin > 1500 ng/mL (20-250)
[2021-02-21] MEDS: Tiotropium 10 INH DOSE IH SCH (07:36)
[2021-02-21] MEDS: Cyanocobalamin (B-12) 1,000 MCG TABLET PO SCH (09:13)
[2021-02-21] MEDS: Dexamethasone Sodium Phos/PF 10 MG/ML VIAL IVP SCH (09:14)
[2021-02-21] MEDS: Aspirin Enteric Coated 81 MG Tablet PO SCH (09:14)
[2021-02-21] MEDS: Divalproex (24 HR) 250 MG TABLET PO SCH ×2 (09:14→21:07)
[2021-02-21] MEDS: cefTRIAXone 1,000 MG in Water for inj. (sterile) 10 ML IVP SCH (14:29)
[2021-02-21] MEDS: QUEtiapine Fumarate 25 MG TABLET PO SCH (21:07)
[2021-02-21] MEDS: Melatonin 3 MG TABLET PO PRN (21:08)
[2021-02-22] MEDS: Ipratropium 1 PUFF INHALER IH SCH ×6 (04:55→23:32)
[2021-02-22] MEDS: *HR* Enoxaparin 40 MG/0.4 ML SYRINGE SQ SCH (05:55)
[2021-02-22 07:52] LABS: Basophils % 0.4 %; Eosinophils # 0.1 K/mcL (0.0-0.6); Eosinophils % 1.5 %; Hematocrit 40.2 % (37.5-50.1); Hemoglobin 12.9 g/dL (12.9-16.9); Immature Granulocytes % 1.2 % (0-4); Lymphocytes # 1.1 K/mcL (0.6-4.6); Lymphocytes % 13.3 %; Mean Corpuscular HGB Conc 32.1 g/dL (31.6-35.5); Mean Corpuscular Hemoglobin 28.7 pg (28.0-33.3); Mean Corpuscular Volume 89.3 fL (83.0-100.0); Mean Platelet Volume 12.6 fL (9.4-12.4); Monocytes # 0.5 K/mcL (0.0-1.3); Neutrophils # 6.5 K/mcL (1.6-8.9); Platelet Count 163 K/mcL (140-400); Red Cell Distribution Width 14.6 % (11.5-14.5); Segmented Neutrophils % 77.6 %
[2021-02-22] MEDS: Tiotropium 10 INH DOSE IH SCH (07:56)
[2021-02-22 08:01] LABS: White Blood Count 8.4 K/mcL (4.3-11.1)
[2021-02-22 08:31] LABS: Alanine Aminotransferase 15 Units/L (7-52); Albumin 2.9 g/dL (3.5-5.7); Albumin/Globulin Ratio 1.1 (1.1-2.2); Alkaline Phosphatase 50 Units/L (34-104); Aspartate Amino Transferase 16 Units/L (13-39); BUN/Creatinine Ratio 34 (6-26); Bilirubin,Total 0.4 mg/dL (0.3-1.0); Blood Urea Nitrogen 31 mg/dL (8-23); Calcium 8.8 mg/dL (8.6-10.3); Carbon Dioxide 35 mEq/L (23-29); Chloride 100 mEq/L (98-107); Globulin 2.7 g/dL (2.4-3.5); Glucose 99 mg/dL (70-105); Osmolality,Calculated 295 (280-300); Potassium 4.2 mEq/L (3.5-5.1); Sodium 139 mEq/L (136-145); Total Protein 5.6 g/dL (6.4-8.9); eGFR For African Americans > 60 (> 60); eGFR For Non-African Americans > 60 (> 60)
[2021-02-22] MEDS: Aspirin Enteric Coated 81 MG Tablet PO SCH (10:16)
[2021-02-22] MEDS: Divalproex (24 HR) 250 MG TABLET PO SCH ×2 (10:16→21:57)
[2021-02-22] MEDS: Dexamethasone Sodium Phos/PF 10 MG/ML VIAL IVP SCH (10:16)
[2021-02-22] MEDS: Cyanocobalamin (B-12) 1,000 MCG TABLET PO SCH (10:16)
[2021-02-22] MEDS: cefTRIAXone 1,000 MG in Water for inj. (sterile) 10 ML IVP SCH (14:52)
[2021-02-22] MEDS: QUEtiapine Fumarate 25 MG TABLET PO SCH (21:57)
[2021-02-23] MEDS: Ipratropium 1 PUFF INHALER IH SCH ×5 (04:21→20:24)
[2021-02-23 04:26] LABS: Basophils % 0.2 %; Hematocrit 39.8 % (37.5-50.1); Immature Granulocytes % 1.1 % (0-4); Lymphocytes # 0.7 K/mcL (0.6-4.6); Lymphocytes % 8.4 %; Mean Corpuscular HGB Conc 32.7 g/dL (31.6-35.5); Mean Corpuscular Hemoglobin 29.1 pg (28.0-33.3); Mean Corpuscular Volume 89.2 fL (83.0-100.0); Mean Platelet Volume 12.1 fL (9.4-12.4); Monocytes # 0.3 K/mcL (0.0-1.3); Monocytes % 3.3 %; Platelet Count 181 K/mcL (140-400); Red Blood Count 4.46 M/mcL (4.19-5.50); Red Cell Distribution Width 14.5 % (11.5-14.5); White Blood Count 8.1 K/mcL (4.3-11.1)
[2021-02-23 04:43] LABS: Alanine Aminotransferase 13 Units/L (7-52); Albumin/Globulin Ratio 1.1 (1.1-2.2); Alkaline Phosphatase 50 Units/L (34-104); Aspartate Amino Transferase 11 Units/L (13-39); BUN/Creatinine Ratio 44 (6-26); Bilirubin,Total 0.4 mg/dL (0.3-1.0); Blood Urea Nitrogen 36 mg/dL (8-23); Carbon Dioxide 31 mEq/L (23-29); Chloride 101 mEq/L (98-107); Globulin 2.8 g/dL (2.4-3.5); Glucose 139 mg/dL (70-105); Lactate Dehydrogenase 168 Units/L (140-271); Osmolality,Calculated 299 (280-300); Potassium 4.6 mEq/L (3.5-5.1); Sodium 139 mEq/L (136-145); Total Protein 5.8 g/dL (6.4-8.9); eGFR For African Americans > 60 (> 60); eGFR For Non-African Americans > 60 (> 60)
[2021-02-23 05:02] LABS: Ferritin > 1500 ng/mL (20-250)
[2021-02-23] MEDS: *HR* Enoxaparin 40 MG/0.4 ML SYRINGE SQ SCH (05:07)
[2021-02-23] MEDS: Tiotropium 10 INH DOSE IH SCH (07:49)
[2021-02-23] MEDS: Cyanocobalamin (B-12) 1,000 MCG TABLET PO SCH (09:12)
[2021-02-23] MEDS: Aspirin Enteric Coated 81 MG Tablet PO SCH (09:12)
[2021-02-23] MEDS: Divalproex (24 HR) 250 MG TABLET PO SCH ×2 (09:12→22:11)
[2021-02-23] MEDS: Dexamethasone Sodium Phos/PF 10 MG/ML VIAL IVP SCH (09:13)
[2021-02-23] MEDS: QUEtiapine Fumarate 25 MG TABLET PO SCH (22:11)
[2021-02-24] MEDS: Ipratropium 1 PUFF INHALER IH SCH ×6 (00:31→19:42)
[2021-02-24] MEDS: *HR* Enoxaparin 40 MG/0.4 ML SYRINGE SQ SCH (06:25)
[2021-02-24] MEDS: Aspirin Enteric Coated 81 MG Tablet PO SCH (07:55)
[2021-02-24] MEDS: Divalproex (24 HR) 250 MG TABLET PO SCH ×2 (07:55→21:52)
[2021-02-24] MEDS: Cyanocobalamin (B-12) 1,000 MCG TABLET PO SCH (07:55)
[2021-02-24] MEDS: Dexamethasone Sodium Phos/PF 10 MG/ML VIAL IVP SCH (07:56)
[2021-02-24] MEDS: Tiotropium 10 INH DOSE IH SCH (08:21)
[2021-02-24] MEDS: QUEtiapine Fumarate 25 MG TABLET PO SCH (21:52)
[2021-02-25] MEDS: Ipratropium 1 PUFF INHALER IH SCH ×4 (00:11→11:18)
[2021-02-25 05:07] LABS: Basophils % 0.1 %; Eosinophils % 0.1 %; Hematocrit 36.3 % (37.5-50.1); Hemoglobin 12.1 g/dL (12.9-16.9); Immature Granulocytes % 0.8 % (0-4); Lymphocytes # 0.9 K/mcL (0.6-4.6); Mean Corpuscular HGB Conc 33.3 g/dL (31.6-35.5); Mean Corpuscular Hemoglobin 29.4 pg (28.0-33.3); Mean Corpuscular Volume 88.3 fL (83.0-100.0); Mean Platelet Volume 11.3 fL (9.4-12.4); Monocytes # 0.5 K/mcL (0.0-1.3); Monocytes % 5.4 %; Neutrophils # 7.5 K/mcL (1.6-8.9); Platelet Count 185 K/mcL (140-400); Red Blood Count 4.11 M/mcL (4.19-5.50); Red Cell Distribution Width 14.6 % (11.5-14.5); Segmented Neutrophils % 83.6 %
[2021-02-25] MEDS: *HR* Enoxaparin 40 MG/0.4 ML SYRINGE SQ SCH (05:16)
[2021-02-25 05:28] LABS: BUN/Creatinine Ratio 38 (6-26); Blood Urea Nitrogen 32 mg/dL (8-23); Calcium 8.7 mg/dL (8.6-10.3); Carbon Dioxide 31 mEq/L (23-29); Chloride 99 mEq/L (98-107); Glucose 93 mg/dL (70-105); Osmolality,Calculated 293 (280-300); Potassium 4.2 mEq/L (3.5-5.1); Sodium 138 mEq/L (136-145); eGFR For African Americans > 60 (> 60); eGFR For Non-African Americans > 60 (> 60)
[2021-02-25] MEDS: Tiotropium 10 INH DOSE IH SCH (07:54)
[2021-02-25] MEDS: Aspirin Enteric Coated 81 MG Tablet PO SCH (09:41)
[2021-02-25] MEDS: Cyanocobalamin (B-12) 1,000 MCG TABLET PO SCH (09:41)
[2021-02-25] MEDS: Divalproex (24 HR) 250 MG TABLET PO SCH (09:42)
[2021-02-25] MEDS: Dexamethasone Sodium Phos/PF 10 MG/ML VIAL IVP SCH (09:42)
[2021-02-25 10:40] VITALS: BP 124/80
== END 2021-02-25 13:10 | DRG 177 ==
LOC: 2NENU 22:50 → EMEROOARM 22:50 → SUATTDRO 02-17 01:50 → 2NENU 02-17 02:30
PROVIDERS: ADMIT Family Medicine; ATTEND Family Medicine